=== PATIENT | male | born 1995 | race Two or more races ===

== ENCOUNTER 2024-01-11 16:22 | Emergency (ER) | payer MEDICAID, SELFPAY ==
--- NOTE | ~2024-01-11 | XR_ITS ---
EXAMINATION: XR HAND/WRIST, RIGHT CLINICAL INFORMATION: Tingling/numbness in fingers. No trauma. COMPARISON: None available. TECHNIQUE: PA, lateral, and oblique views of the right hand and wrist. FINDINGS: The bones and soft tissues are normal. No fracture. Alignment is anatomic. Joint spaces are maintained. No erosions or soft tissue calcifications. XR/XR hand wrist RT IMPRESSION: Normal radiographs of the hand and wrist. Electronically signed by: Eliseo Cleveland DO 01/11/2024 06:52 PM EDT
[2024-01-11 16:59] VITALS: PULSE 74; RESP 16; TEMP 36.9; O2SAT 98; BMI 42.8
--- NOTE | 2024-01-11 16:59 | ED_ITS ---
HPI - General Adult General Chief complaint: General Medical Stated complaint: numbness in hands, vomiting Time Seen by Provider: 01/11/24 19:24 Source: patient Mode of arrival: ambulatory Limitations: no limitations History of Present Illness ED Provider: Rebekah Burger PA-C HPI narrative: Patient is a 28 year old assigned male at with no reported medical history presenting to the emergency department today with right wrist pain, nausea, vomiting, and epigastric pain. Patient states that over the last month he has continued to have right wrist pain that radiates down into his fingers. Patient states that over the last 2 days he has had epigastric pain, nausea, and vomiting. Patient states that he thinks he ate something bad 2 days ago. Patient denies any dizziness, lightheadedness, fever, chills, blurry vision, double vision, loss of vision, chest pain, difficulty breathing, shortness of breath, back pain, night sweats, pain with urination, increased urinary frequency, increased urinary urgency, blood in his urine or stool, syncope or a near syncopal episode, recent trauma or falls, bowel incontinence, bladder incontinence, or any other complaints at this time. Relieving factors: none Exacerbating factors: none Related Data Previous Rx's ?Medication ?Instructions ?Recorded omeprazole 20 mg capsule,delayed 20 mg PO DAILY #7 caps 01/11/24 release ondansetron 4 mg disintegrating 4 mg PO Q8H 3 days #9 tabs 01/11/24 tablet prednisone 20 mg tablet 20 mg PO DAILY 7 days #7 tabs 01/11/24 Allergies Allergy/AdvReac Type Severity Reaction Status Date / Time Penicillins Allergy Unknown Verified 01/11/24 17:04 Review of Systems 2 Constitutional: Constitutional: Reports no additional constitutional complaints, Denies chills, Denies fever(s) and Denies night sweats Eyes: Eyes: Reports no additional eye complaints, Denies blurry vision, Denies change in vision, Denies diplopia, Denies eye discharge, Denies loss of vision and Denies eye pain ENT: Denies dizziness Cardiovascular: Cardiovascular: Reports no additional cardiovascular complaints, Denies chest pain, Denies lightheadedness, Denies Loss of Consciousness and Denies dyspnea Respiratory: Respiratory: Reports no additional respiratory complaints and Denies dyspnea Gastrointestinal: Gastrointestinal: Reports no additional gastrointestinal complaints, Reports abdominal pain (epigastric), Denies melena, Denies hematochezia, Denies change in bowel habits, Denies change in stool character, Reports nausea and Reports vomiting Genitourinary: Genitourinary: Reports no additional male genitourinary complaints, Denies hematuria, Denies oliguria, Denies difficulty urinating, Denies dysuria, Denies urinary frequency, Denies urinary hesitancy, Denies urinary incontinence and Denies urinary urgency Musculoskeletal: Musculoskeletal: Reports no additional musculoskeletal complaints, Denies numbness and Denies tingling Comments: right wrist pain Neurologic: Denies dizziness, Denies loss of vision, Denies numbness and Denies tingling Psychiatric: Psychiatric: Reports no additional psychiatric complaints Endocrine: Endocrine: Reports no additional endocrine complaints Hematologic/Lymphatic: Hematologic/Lymphatic: Reports no additional hematologic/lymphatic complaints Allergic/Immunologic: Allergic/Immunologic: Reports no additional allergic/immunologic complaints PMFSH Past Medical History Attestation statement: The following information was validated with the patient. Source: old records reviewed and nursing notes reviewed Social History Social History Advance Directives: No Advance Directives Information Provided: No Physical Exam ED Vital Signs: Vital Signs - 24 hr 01/11/24 16:59 01/11/24 19:20 01/11/24 20:12 Temperature 98.4 F 98.3 F Pulse Rate 74 65 65 Respiratory Rate 16 18 18 Blood Pressure 140/84 H 140/84 H Pulse Oximetry 98 96 96 Oxygen Delivery Method Room Air Room Air Room Air BMI result Body Mass Index 42.8 Const General: cooperative, no acute distress, alert and awake Nutritional Appearance: well nourished Orientation/consciousness: patient oriented x3 Limitations: no limitations [facility] Head: Yes normal to inspection and Yes atraumatic Ears: hearing grossly normal bilaterally and external ears normal General nose exam: Normal external nose present, no nasal discharge noted and no epistaxis Face and sinus: Yes normal facial exam, No abrasion and No laceration Mouth: Normal oral and palatal mucosa present, no drooling and no muffled voice Eyes General: appearance normal, both eyes and all related structures Periorbital: periorbital findings normal Eyelids: Yes eyelids normal Conjunctivae: conjunctivae normal Pupils: Equal, round and reactive pupils present EOM: EOMs intact bilaterally Neck Neck: Yes normal visual inspection, Yes full ROM and Yes no lymphadenopathy Chest Chest palpation & inspection: normal inspection of the chest Resp Effort & Inspection: normal respiratory effort and able to speak in complete sentences GI Inspection: Yes normal to inspection Palpation (GI): Soft to palpation, not firm, nontender and no guarding Neuro General: patient oriented x3 and moves all extremities Cranial nerves: Yes Equal, round and reactive pupils present Cognition (Neuro): normal cognition Extrem Other: ankle monitor present on right ankle positive tinel test of right wrist General: Yes normal to inspection, Yes full ROM and Yes capillary refill normal Psych Appearance: grossly normal Mental Status: mental status grossly normal Affect: normal affect Attitude: cooperative Thought process: Normal thought process present Thought content: Normal thought content present Insight: Good insight present (Psych) Course Course Course Narrative: This is a Rapid Medical Examination (RME) performed by Christ Bailon PA-C in triage. Full HPI, ROS, assessment and treatment plan per primary provider in the Main ED. 28 yo male hx of HTN controlled w/ lifestyle changes, here for eval N/V x2-3 days. reports assoc epigastric abd pain yest. reports decrease PO intake. no known sick contacts. also endorses tingling numbness extending from right wrist into all digits. 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 admits his fingers will cramp and get stuck . Plan: labs, UA, xr ordered Procedures Orthopedic Splinting/Casting Injury #1: Side: right Upper Extremity Injury Location: wrist Upper Extremity Immobilizer: volar splint Medical Decision Making Medical Decision Making MDM Narrative: Patient is a 28 year old assigned male at with no reported medical history presenting to the emergency department today with right wrist pain, epigastric pain, nausea, and vomiting. Patient's physical exam was as noted in the physical exam portion of this note. Patient's blood work was unremarkable. Patient's right wrist x-ray showed no acute process. I explained my physical exam findings as well as all test results to the patient. I answered all questions asked by the patient. Patient's right wrist was placed in a volar splint, without incident. Patient's PMS was intact prior to and after splint placement. I stressed the importance of the patient taking his medication as directed (either prescribed or as the over the counter packaging recommends). I stressed the importance of the patient following up with his primary care provider and an orthopedic provider. I stressed the importance of the patient returning to the emergency department immediately if his symptoms were to worsen or if he were to develop any dizziness, shortness of breath, difficulty breathing, chest pain, blurry vision, loss of vision, nausea, vomiting, abdominal pain, fever, chills, back pain, or any other complaints. Patient verbalized agreement and understanding with this treatment plan and discharge. Differential Diagnosis Differential Diagnoses: The differential diagnosis associated with the presentation includes Carpal tunnel syndrome Gastroenteritis Admission/Observation Consideration of admission/observation: Escalation of care including admission/observation considered Patient would have been admitted to the hospital had his work up had any findings where hospital admission was appropriate and his clinical presentation warranted hospital admission. Lab Data [facility] Lab Attestation statement: I reviewed the patient's lab results. My interpretation of these results are in the [facility] Rationale portion of this note. 01/11/24 17:24 01/11/24 17:24 Labs: Lab Results 01/11/24 01/11/24 01/11/24 Range/Units 17:24 17:27 18:09 WBC 6.1 (4.8-10.8) X10*3/uL RBC 4.97 (4.60-5.80) X10*6/uL Hgb 15.6 (14.0-18.0) g/dl Hct 45.3 (42.0-52.0) % MCV 91.1 (80.0-98.0) fL MCH 31.4 (27.0-33.0) pg MCHC 34.4 (31.0-36.0) g/dl RDW 12.6 (11.0-16.0) % Plt Count 161 (160-400) X10*3/uL MPV 10.1 (9.4-12.4) fL Immature Gran % (Auto) 0.2 (0.0-0.4) % Neut % (Auto) 61.3 (45-73) % Lymph % (Auto) 28.4 (20-40) % [place] % (Auto) 9.0 (2-11) % Eos % (Auto) 0.8 (0-4) % Baso % (Auto) 0.3 (0-2) % Lymph # (Auto) 1.7 (1.2-4.9) X10*3/uL [place] # (Auto) 0.6 (0.1-1.2) X10*3/uL Eos # (Auto) 0.1 (0.0-0.4) X10*3/uL Baso # (Auto) 0.0 (0.0-0.2) X10*3/uL Abs Immat Gran (auto) 0.01 (0.00-0.03) X10*3/uL Absolute Neuts (auto) 3.7 (2.0-8.3) x10*3/uL Absolute Nucleated RBC 0.000 (0.0-0.012) X10*3/uL Nucleated RBC % (auto) 0.0 (0.0-0.2) /100WBC Sodium 139 (135-145) mmol/L Potassium 4.3 (3.3-5.1) mmol/L Chloride 109 H (96-108) mmol/L Carbon Dioxide 23 (22-29) mmol/L Anion Gap 11 L (12-20) BUN 13 (9-16) mg/dL Creatinine 1.03 (0.5-1.4) mg/dL Estim Creat Clear Calc 167.4 Estimated GFR > 60 Random Glucose 101 (60-115) mg/dL Calcium 8.9 (8.4-10.2) mg/dL Magnesium 2.1 (1.6-2.6) mg/dL Total Bilirubin 0.2 (0.0-1.0) mg/dL AST 22 (5-37) U/L ALT 14 (0-40) U/L Alkaline Phosphatase 87 (39-117) U/L Total Protein 6.9 (6.5-8.0) g/dL Albumin 3.7 (3.5-5.0) g/dL Lipase 26 (8-78) U/L Urine Color Yellow Urine Appearance Clear Urine pH 5.5 (5.0-9.0) Ur Specific [place] >= 1.030 H (1.005-1.025) Urine Protein Negative (Neg-Trace) mg/dL Urine Glucose (UA) Negative (Negative) mg/dL Urine Ketones Negative (Negative) mg/dL Urine Blood Negative (Negative) Urine Nitrite Negative (Negative) Ur Leukocyte Esterase Negative (Negative) Influenza Type A (PCR) NEGATIVE (Negative) Influenza Type B (PCR) NEGATIVE (Negative) RSV RNA Qual (PCR) NEGATIVE (Negative) SARS-CoV-2 RNA (RT-PCR) NEGATIVE (Negative) Independent Interpretation I performed an independent interpretation of an: Plain X-Ray Interpretation: My interpretation is in agreement with the radiologist's impression of this imaging study. - EXAMINATION: XR HAND/WRIST, RIGHT CLINICAL INFORMATION: Tingling/numbness in fingers. No trauma. COMPARISON: None available. TECHNIQUE: PA, lateral, and oblique views of the right hand and wrist. FINDINGS: The bones and soft tissues are normal. No fracture. Alignment is anatomic. Joint spaces are maintained. No erosions or soft tissue calcifications. XR/XR hand wrist RT IMPRESSION: Normal radiographs of the hand and wrist. Electronically signed by: Eliseo Cleveland DO 01/11/2024 06:52 PM EDT Dictated By: Eliseo Cleveland Jr, DO Signed By: Electronically signed by Eliseo Cleveland Jr, DO 01/11/24 [id number] Radiology Impression Discussion of test interpretation with radiology: I have reviewed the radiologist's reading. Discharge Plan Discharge Clinical Impression: Acute carpal tunnel syndrome, Gastroenteritis Patient Disposition: Home, Self-Care Instructions: Gastroenteritis (DC), Carpal Tunnel Surgery (DC) Additional Instructions: Follow up with your primary care provider and an orthopedic provider. Return to the emergency department immediately if your symptoms worsen or if you develop any dizziness, shortness of breath, difficulty breathing, chest pain, blurry vision, loss of vision, nausea, vomiting, abdominal pain, fever, chills, back pain, or any other complaints. Prescriptions: New prednisone 20 mg tablet 20 mg PO DAILY 7 Days Qty: 7 0RF ondansetron 4 mg tablet,disintegrating 4 mg PO Q8H 3 Days Qty: 9 0RF omeprazole 20 mg capsule,delayed release(DR/EC) 20 mg PO DAILY Qty: 7 0RF Referrals: [facility] [place] [facility] [Provider Group] (Call to establish and follow up with an orthopedic provider. ) [facility] [Primary Care Provider] - Stand Alone Forms: Work/School Release Interventions: ED Discharge Assessment Last Done: 01/11/24 20:12 Discharge Date/Time: 01/11/24 20:13 Print Language: Togolese
[2024-01-11 17:28] LABS: MANUAL DIFF FLAG NO
[2024-01-11 17:32] LABS: Basophils Percent Auto 0.3 % (0-2); Eosinophils Absolute Auto 0.1 X10*3/uL (0.0-0.4); Eosinophils Percent Auto 0.8 % (0-4); Hematocrit 45.3 % (42.0-52.0); Hemoglobin 15.6 g/dl (14.0-18.0); Imm Gran Abs Auto 0.01 X10*3/uL (0.00-0.03); Imm Gran Pct Auto 0.2 % (0.0-0.4); Lymphocytes Absolute Auto 1.7 X10*3/uL (1.2-4.9); Lymphocytes Percent Auto 28.4 % (20-40); Mean Corpuscular HGB Conc 34.4 g/dl (31.0-36.0); Mean Corpuscular Hemoglobin 31.4 pg (27.0-33.0); Mean Corpuscular Volume 91.1 fL (80.0-98.0); Mean Platelet Volume 10.1 fL (9.4-12.4); Monocytes Absolute Auto 0.6 X10*3/uL (0.1-1.2); Neutrophils Absolute Auto 3.7 x10*3/uL (2.0-8.3); Neutrophils Percent Auto 61.3 % (45-73); Platelet Count 161 X10*3/uL (160-400); Red Blood Count 4.97 X10*6/uL (4.60-5.80); Red Cell Distribution Width 12.6 % (11.0-16.0); White Blood Count 6.1 X10*3/uL (4.8-10.8)
[2024-01-11 17:35] LABS: Appearance Urine Clear; Color Urine Yellow; Glucose Urine UA Negative (Negative); Leukocyte Esterase Urine Negative (Negative); Nitrite Urine Negative (Negative); PH 5.5 (5.0-9.0); Specific Gravity - Urine >= 1.030 (1.005-1.025); Urine Blood Negative (Negative); Urine Ketones Negative (Negative); Urine Protein Negative (Neg-Trace)
[2024-01-11 17:50] LABS: Alanine Aminotransferase 14 U/L (0-40); Albumin Level 3.7 g/dL (3.5-5.0); Alkaline Phosphatase 87 U/L (39-117); Anion Gap 11 (12-20); Aspartate Amino Transferase 22 U/L (5-37); Bilirubin Total 0.2 mg/dL (0.0-1.0); Blood Urea Nitrogen 13 mg/dL (9-16); Calcium 8.9 mg/dL (8.4-10.2); Carbon Dioxide 23 mmol/L (22-29); Chloride 109 mmol/L (96-108); Creatinine Clr Calc Pharmacy 167.4; Estimated Glomerular Filt Rate > 60; Glucose Random 101 mg/dL (60-115); Lipase 26 U/L (8-78); Magnesium 2.1 mg/dL (1.6-2.6); Potassium 4.3 mmol/L (3.3-5.1); Sodium 139 mmol/L (135-145); Total Protein 6.9 g/dL (6.5-8.0)
[2024-01-11 18:59] LABS: Influenza A PCR NEGATIVE (Negative); Influenza B PCR NEGATIVE (Negative); Resp Syncy Virus RNA Qual PCR NEGATIVE (Negative); SARS COV2 PCR INHOUSE NEGATIVE (Negative)
[2024-01-11 19:20] VITALS: BP 140/84; PULSE 65; RESP 18; O2SAT 96
[2024-01-11 20:12] VITALS: BP 140/84; PULSE 65; RESP 18; TEMP 36.8; O2SAT 96
== END 2024-01-11 20:13 | disposition home or self-care (01) ==
PROVIDERS: Physician Assistant Medical; Emergency Provider Emergency Medicine Emergency Medical Services
DX: G56.01 Carpal tunnel syndrome, right upper limb (principal); M25.531 Pain in right wrist; K52.9 Noninfective gastroenteritis and colitis, unspecified; Z03.818 Encounter for observation for suspected exposure to other biological agents ruled out
CPT/HCPCS: 0241U; 36415; 73110; 73130; 80053; 81003; 83690; 83735; 85025; 99283; 99284

== ENCOUNTER 2024-01-31 08:34 | Outpatient (AMB) | payer MEDICAID, SELFPAY ==
--- NOTE | 2024-01-31 08:36 | MHC.OFFVIS ---
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 Pt states this pain has been going on for quite some time but within the past two months has gotten much worse. 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 Pt states his hand feels weak. 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 The patient reports that this numbness and tingling primarily occurs in the thumb, index finger, middle finger of the right hand. 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 Today, the patient reports that he is numb and tingling in the middle and ring fingers of the right hand, but it is still primarily in the median nerve distribution of the right hand. Patient states that he has been wearing an wrist brace provided to him by his mother to work, as well as at night, and finds that this gives him good relief. The patient inquires about potential carpal tunnel injections. No other acute complaints or concerns at this time. Review of Systems Const All systems reviewed & are unremarkable except as noted in HPI and below Physical Exam Extrem Other: Neuro: Decreased sensation in the middle and radial ring fingers of the right hand. Normal sensation to all other digits in the right hand today. Normal sensation in the tips of all digits of the left hand today. No thenar or intrinsic wasting. Weakened APB muscle belly firing Good finger cross Vascular: Capillary refill brisk. ROM: Patient can make a fist and extend all their digits. Skin: No lacerations or abrasions noted. General: No ecchymosis. No erythema or evidence of infection. Negative Tinel's on the right Assessment & Plan Assessment & Plan (1) Numbness and tingling of right hand: Code(s): R20.0 - Anesthesia of skin; R20.2 - Paresthesia of skin Category: Medical Plan 1. Numbness and tingling of right hand Ongoing for ?many years , worsening over the last 2-3 months Symptoms intermittent, daily, worse at night Patient is educated about this condition At this time, patient is sent for EMG and nerve conduction study to assess the health of the nerves of the right upper extremity Patient will follow-up in our office with me after EMG and nerve conduction study to discuss further treatment options if indicated Patient is amenable to this plan In the meantime, the patient is provided with a Velcro wrist splint to be worn at night for help with night pain and other symptoms, but is advised he should not be wearing this brace during the day, and he should continue working on range of motion of the right hand and wrist while awake Patient will follow-up after nerve conduction study for results review and discussion of further treatment options if indicated, sooner with any acute concerns Orders: Orders NE electromyogram (EMG) Today R20.0 - Anesthesia of skin, R20.2 - Paresthesia of skin NE nerve conduction velocity Today R20.0 - Anesthesia of skin, R20.2 - Paresthesia of skin Coding Level of Care Code New Pt Level 3 (10010) Diagnoses Numbness and tingling of right hand R20.0; R20.2
== END 2024-01-31 09:23 | disposition home or self-care (01) ==
DX: R20.0 Anesthesia of skin (principal); R20.2 Paresthesia of skin
CPT/HCPCS: 99203

== ENCOUNTER → 2024-01-31 08:34 | Outpatient (BNVA) | payer MEDICAID, SELFPAY | DX: R20.0 Anesthesia of skin (principal); R20.2 Paresthesia of skin | CPT/HCPCS: 99212 ==

== ENCOUNTER 2024-02-28 12:24 | Outpatient (REF) | payer MEDICAID, SELFPAY ==
--- NOTE | 2024-02-28 12:27 | EMG_ITS ---
Chief complaint: Bilateral hand numbness. Associated with repetitive work. Started with right side. Also affecting left side now since he has been using left more to compensate. Reason for referral: Evaluate for Carpal Tunnel Syndrome Referred by: Obie MURILLO Procedure done: Bilateral upper extremities NCS/EMG Precautions and/or limitations: None The limb temperature was monitored continuously and remained between 32-36 degrees C during the performance of the NCS. Nerve Conduction Studies Anti Sensory Summary Table ?Stim Site NR Onset (ms) Norm Onset (ms) Peak (ms) Norm Peak (ms) O-P Amp (?V) Norm O-P Amp Site1 Site2 Delta-0 (ms) Dist (cm) Aravind (m/s) Norm Aravind (m/s) Left Median Anti Sensory (2nd Digit) Wrist ? 3.3 4.2 <3.6 25.3 >10 Wrist 2nd Digit 3.3 14.0 42 Right Median Anti Sensory (2nd Digit) Wrist ? 3.6 5.4 <3.6 15.2 >10 Wrist 2nd Digit 3.6 14.0 39 Right Radial Anti Sensory (Thumb) Forearm ? 1.3 1.9 <3.1 24.4 Forearm Thumb 1.3 0.0 Left Ulnar Anti Sensory (5th Digit) Wrist ? 2.5 3.2 <3.7 36.0 >15.0 Wrist 5th Digit 2.5 14.0 56 Right Ulnar Anti Sensory (5th Digit) Wrist ? 2.3 3.0 <3.7 32.6 >15.0 Wrist 5th Digit 2.3 14.0 61 Motor Summary Table ?Stim Site NR Onset (ms) Norm Onset (ms) O-P Amp (mV) Norm O-P Amp iAmp (mV) Amp (1st) (%) Site1 Site2 Delta-0 (ms) Dist (cm) Aravind (m/s) Norm Aravind (m/s) Left Median Motor (Abd Poll Brev) Wrist ? 5.5 <3.9 7.8 >4.5 9.5 100.0 Elbow Wrist 5.0 26.5 53 >45 Elbow ? 10.5 7.6 9.2 97.4 Right Median Motor (Abd Poll Brev) Wrist ? 5.7 <3.9 11.1 >4.5 13.1 100.0 Elbow Wrist 5.2 27.0 52 >45 Elbow ? 10.9 10.6 12.5 95.5 Left Ulnar Motor (Abd Dig Minimi) Wrist ? 3.0 <3.0 6.1 >5 7.5 100.0 B Elbow Wrist 4.4 26.0 59 >45 B Elbow ? 7.4 4.9 6.2 80.3 A Elbow B Elbow 0.9 10.0 111 >45 A Elbow ? 8.3 5.7 7.2 93.4 Right Ulnar Motor (Abd Dig Minimi) Wrist ? 3.0 <3.0 5.3 >5 6.9 100.0 B Elbow Wrist 4.2 25.0 60 >45 B Elbow ? 7.2 5.0 6.5 94.3 A Elbow B Elbow 1.0 10.0 100 >45 A Elbow ? 8.2 5.0 6.5 94.3 EMG ?Side Muscle Nerve Root Ins Act Fibs Psw Amp Dur Poly Recrt Int Pat Comment Right 1stDorInt Ulnar C8-T1 Nml Nml Nml Nml Nml 0 Nml Complete Right FlexCarRad Median C6-7 Nml Nml Nml Nml Nml 0 Nml Complete Right Biceps Musculocut C5-6 Nml Nml Nml Nml Nml 0 Nml Complete Right Triceps Radial C6-7-8 Nml Nml Nml Nml Nml 0 Nml Complete Right Deltoid Axillary C5-6 Nml Nml Nml Nml Nml 0 Nml Complete Left 1stDorInt Ulnar C8-T1 Nml Nml Nml Nml Nml 0 Nml Complete Left FlexCarRad Median C6-7 Nml Nml Nml Nml Nml 0 Nml Complete Left Biceps Musculocut C5-6 Nml Nml Nml Nml Nml 0 Nml Complete Left Triceps Radial C6-7-8 Nml Nml Nml Nml Nml 0 Nml Complete Left Deltoid Axillary C5-6 Nml Nml Nml Nml Nml 0 Nml Complete FINDINGS: Bilateral median motor nerves showed prolonged distal latency, normal amplitude and normal conduction velocity. Bilateral median sensory nerves showed prolonged peak latency. All other nerves tested were within normal. Concentric needle EMG was performed in selected muscles of the bilateral upper extremities. Study did not reveal signs of electric abnormalities as shown in the table above. IMPRESSION: 1. This is an abnormal study. 2. There is electrodiagnostic evidence for bilateral moderate-severe median neuropathy at the wrist, consistent with carpal tunnel syndrome. 3. There is no electrodiagnostic evidence for ulnar neuropathy, brachial plexopathy, or cervical radiculopathy. Thank you for your kind referral. Aziza Youngblood MD, JENNIFER Board Certified, [place] Board [employer] and [employer] (ABPMR) Board Certified, [place] Board of Electrodiagnostic [employer] (ABEM) CODIN [phone] x 2 MTDD
== END 2024-02-28 12:25 | disposition home or self-care (01) ==
LOC: HO.NEURO 12:24
DX: R20.0 Anesthesia of skin (principal); R20.2 Paresthesia of skin
CPT/HCPCS: 95886; 95911

== ENCOUNTER → 2024-02-28 12:27 | Outpatient (BNV) | payer MEDICAID, SELFPAY | PROVIDERS: Visit Provider Physical Medicine & Rehabilitation | DX: G56.03 Carpal tunnel syndrome, bilateral upper limbs (principal) | CPT/HCPCS: 95886; 95911 ==

== ENCOUNTER 2024-03-14 09:50 | Outpatient (AMB) | payer MEDICAID, SELFPAY ==
[2024-03-14 10:31] VITALS: BMI 42.7
--- NOTE | 2024-03-14 10:31 | A.OFFVIS_ITS ---
Vital Signs 03/14/24 10:31 Height 6 ft 3 in Weight 342 lb BMI 42.7 Intake Visit Reasons: OV- bilateral hand EMG review Intake Note: Carlos is a 28 year old right hand dominant male who presents today for an EMG review of his bilateral hands. EMG was performed on 02/28/24 Allergies Penicillins Allergy (Verified 03/14/24 10:36) Unknown HPI HPI OV- bilateral hand EMG review: Details: Patient is a 28-year-old male who presents for bilateral hand EMG review. Patient states that his symptoms have remained consistent since previous evaluation, and are still intermittent, but daily, and worse at night. Physical Exam Vital Signs: BMI result Body Mass Index 42.7 Extrem Other: Neuro: Decreased sensation in the middle and radial ring fingers of the right hand. Normal sensation to all other digits in the right hand today. Normal sensation in the tips of all digits of the left hand today. No thenar or intrinsic wasting. Weakened APB muscle belly firing Good finger cross Vascular: Capillary refill brisk. ROM: Patient can make a fist and extend all their digits. Skin: No lacerations or abrasions noted. General: No ecchymosis. No erythema or evidence of infection. Negative Tinel's on the right Results Reviewed Results Reviewed: IMPRESSION: 1. This is an abnormal study. 2. There is electrodiagnostic evidence for bilateral moderate-severe median neuropathy at the wrist, consistent with carpal tunnel syndrome. 3. There is no electrodiagnostic evidence for ulnar neuropathy, brachial plexopathy, or cervical radiculopathy. Thank you for your kind referral. Aziza Youngblood MD, JENNIFER 02/28/2020 Assessment & Plan Assessment & Plan (1) Bilateral carpal tunnel syndrome: Code(s): G56.03 - Carpal tunnel syndrome, bilateral upper limbs Category: Medical Plan 1. Carpal tunnel syndrome, right Symptoms intermittent, daily, worse at night I educated the patient about the condition. I discussed both operative and nonoperative treatment options. The patient would like to proceed with surgery. The risks and benefits of operative treatment were discussed with the patient and the patient wishes to proceed with surgery. These risks include, but are not limited to, risk of damage to blood vessels, nerves, tendons, infection, recurrence, incomplete relief of preoperative symptoms, persistent pain, possible need for further surgery, and the risks associated with regional blocks and/or anesthesia. Plan is to take the patient to the operating room at some point in the next few weeks for the following procedures: 1. Right carpal tunnel release under local anesthesia All of the preoperative paperwork including the consent was discussed today. All of the patient's questions were answered in the clinic today. The patient understands that they will be in contact with our medical or surgical instrument maker to discuss scheduling their procedure. Patient denies diabetes, blood thinners, asthma, heart issues, lung issues, kidney issues, or current smoking. 2. Carpal tunnel syndrome, left Symptoms intermittent, daily, worse at night At this time, patient would like to proceed with operative intervention on the right prior to any surgical intervention on the left Patient was advised that if he is recovering well at his 1st postoperative visit, we can get him signed up for surgery at that time Patient is amenable to this plan Coding Level of Care Code Est Pt Level 4 (83923) Diagnoses Bilateral carpal tunnel syndrome G56.03
== END 2024-03-14 10:49 | disposition home or self-care (01) ==
LOC: HO.HOS 09:50
DX: G56.03 Carpal tunnel syndrome, bilateral upper limbs (principal)
CPT/HCPCS: 99214

== ENCOUNTER → 2024-03-14 09:50 | Outpatient (BNVA) | payer MEDICAID, SELFPAY | DX: G56.03 Carpal tunnel syndrome, bilateral upper limbs (principal) | CPT/HCPCS: 99212 ==

== ENCOUNTER 2024-05-09 20:18 | Emergency (ER) | payer MEDICAID, SELFPAY ==
--- NOTE | ~2024-05-09 | CT_ITS ---
CLINICAL HISTORY: headache, lightheadedness CT head without contrast Comparison: None Findings: No intra-axial mass, midline shift, hydrocephalus, or acute hemorrhage. No significant atrophy-like change or white matter disease. There is no sinus or mastoid fluid. The orbits are within normal limits. There is no acute fracture. IMPRESSION: 1. No acute intracranial findings This document has been electronically signed by: Favian Andrews MD on 05/09/2024 21:53:04
[2024-05-09 20:22] VITALS: BP 137/87; PULSE 98; RESP 18; TEMP 37.6; O2SAT 98; BMI 39.4
--- NOTE | 2024-05-09 20:22 | ED_ITS ---
HPI - General Adult General Chief complaint: Upper Respiratory Symptoms Stated complaint: Migraine/coughing alot/no appetite Time Seen by Provider: 05/10/24 00:09 History of Present Illness ED Provider: Laura NIELSEN narrative: Patient is a 28-year-old male who has felt unwell for about 3 days. He says that his symptoms started with a mild sense of being unwell together with a cough. Yesterday he felt considerably worse and also developed a significant headache and body aches generally. Related Data Previous Rx's ?Medication ?Instructions ?Recorded ibuprofen 400 mg tablet 400 mg PO Q6H PRN pain #14 tabs 05/10/24 oseltamivir 75 mg capsule 75 mg PO BID 5 days #10 caps 05/10/24 Allergies Allergy/AdvReac Type Severity Reaction Status Date / Time Penicillins Allergy Unknown Verified 05/09/24 20:23 Review of Systems Review of Systems: Yes all other systems are reviewed and are negative [facility] Social History Social History Advance Directives: No Advance Directives Information Provided: No Do you have a plan to hurt others: No Plan Physical Exam ED Vital Signs: Vital Signs - 24 hr 05/09/24 20:22 05/09/24 23:12 Temperature 99.7 F 99.9 F Pulse Rate 98 82 Respiratory Rate 18 22 H Blood Pressure 137/87 121/75 Pulse Oximetry 98 97 Oxygen Delivery Method Room Air Room Air BMI result Body Mass Index 39.4 Const Other: The patient is a 28-year-old male who looks as if he does not feel very well but he does not appear in acute distress or seem toxic. HENAR Other: Face is symmetrical. Mucous membranes are moist. The posterior pharynx is normal. There is no trismus. No intraoral swelling. Tympanic membranes are normal bilaterally. Eyes General: appearance normal, both eyes and all related structures Neck Neck: Yes full ROM and Yes no lymphadenopathy Resp Effort & Inspection: normal respiratory effort Auscultation: clear to auscultation bilaterally Cardio Rate: regular rate Rhythm: regular rhythm Heart sounds: S1 normal heart sound present and S2 normal heart sound present GI Other: Abdomen is soft and nontender Skin Other: Skin is pale and dry Neuro Other: The patient is awake and alert with a normal mental status. Cranial nerves are grossly intact. He moves his extremities normally. Extrem Other: No calf swelling or tenderness or asymmetry. Course Course Course Narrative: RME performed by Rebekah Burger PA-C. Patient is a 28 year old assigned male at presenting to the emergency department with a headache, cough, and feeling generally unwell. Detailed physical exam and review of systems are deferred to the solidworks mechanical designer. Imaging and swabs ordered. Patient placed back in the waiting room pending room availability and results. Medical Decision Making Medical Decision Making MDM Narrative: The patient is a 28-year-old male who says that he has felt unwell for 3 days. He says his symptoms became much worse yesterday. He has felt feverish, he has had a sense of cough and congestion, he has had a headache and body aches. His symptoms seem consistent with an acute respiratory infection and he has tested positive for influenza A. A CT scan of the brain has been ordered at triage. This is negative. The patient will be started on oseltamivir. He will also be prescribed ibuprofen. He is encouraged to get a regular doctor. He should return if worse. Lab Data Labs: Lab Results 05/09/24 Range/Units 20:36 Influenza Type A (PCR) POSITIVE A (Negative) Influenza Type B (PCR) NEGATIVE (Negative) RSV RNA Qual (PCR) NEGATIVE (Negative) SARS-CoV-2 RNA (RT-PCR) NEGATIVE (Negative) S. pyogenes GrpA KARY Negative (Negative) Discharge Plan Discharge Clinical Impression: Influenza A Patient Disposition: Home, Self-Care Instructions: Influenza (ED) Additional Instructions: You have tested positive for the flu today. You has been started on an anti-influenza medication, oseltamivir, also known as Tamiflu. A prescription for this medication has been sent to your pharmacy. Please take this medication 2 times a day for 5 days. A prescription for ibuprofen has also been sent to your pharmacy which you may use for discomfort. Use this as needed every 6 hours. You may also use [id number] acetaminophen (Tylenol) as needed. Please plan on resting and taking it easy over the weekend. You will likely feel unwell for another couple of days. Drink lot of fluids. Please work on getting a regular primary care doctor. Return to the emergency room if significantly worse. Prescriptions: New oseltamivir 75 mg capsule 75 mg PO BID 5 Days Qty: 10 0RF ibuprofen 400 mg tablet 400 mg PO Q6H PRN (Reason: pain) Qty: 14 0RF Print Language: German
[2024-05-09 21:19] LABS: Influenza A PCR POSITIVE (Negative); Influenza B PCR NEGATIVE (Negative); Resp Syncy Virus RNA Qual PCR NEGATIVE (Negative); SARS COV2 PCR INHOUSE NEGATIVE (Negative)
[2024-05-09 21:33] LABS: IDNOW Serial# 58CA691E
[2024-05-09 21:34] LABS: Strep A Nucleic Acid Negative (Negative)
[2024-05-09 23:12] VITALS: BP 121/75; PULSE 82; RESP 22; TEMP 37.7; O2SAT 97
[2024-05-10 00:41] VITALS: BP 132/82; PULSE 76; RESP 20; TEMP 37.2; O2SAT 97
[2024-05-10] MEDS: Acetaminophen 325 MG TABLET 975 MG PO (00:44)
[2024-05-10] MEDS: Ketorolac Tromethamine 30 MG/ML VIAL IM (00:44)
[2024-05-10] MEDS: Oseltamivir Phosphate 75 MG CAPSULE PO (00:44)
== END 2024-05-10 01:09 | disposition home or self-care (01) ==
PROVIDERS: Physician Assistant Medical; Emergency Provider Emergency Medicine
DX: J10.1 Influenza due to other identified influenza virus with other respiratory manifestations (principal); G43.909 Migraine, unspecified, not intractable, without status migrainosus; R05.9 Cough, unspecified; Z03.818 Encounter for observation for suspected exposure to other biological agents ruled out
CPT/HCPCS: 0241U; 70450; 87651; 96372; 99283; 99284; J1885

== ENCOUNTER → 2024-05-09 20:23 | Outpatient (BNV) | payer SELFPAY | PROVIDERS: Visit Provider Specialist | DX: R51.9 Headache, unspecified (principal); R42 Dizziness and giddiness | CPT/HCPCS: 70450 ==

== ENCOUNTER 2024-11-10 20:51 | Emergency (ER) | payer MEDICAID, SELFPAY ==
[2024-11-10 20:54] VITALS: BP 137/81; PULSE 79; RESP 16; TEMP 36.6; O2SAT 98; BMI 37.7
[2024-11-10 22:17] VITALS: BP 125/72; PULSE 70; RESP 20; TEMP 36.9; O2SAT 100
--- NOTE | 2024-11-10 23:10 | PC.NURSE ---
pt waiting to be seen by provider, pt complaining of left eye pressure, left eye has a visual blood,
--- NOTE | 2024-11-11 00:10 | ED.EYEPROB ---
HPI - Eye Problem General Chief complaint: Eye Problems Stated complaint: headache/left eye pain Time Seen by Provider: 11/10/24 23:58 Source: patient and family Mode of arrival: ambulatory Limitations: no limitations History of Present Illness ED Provider: DR. Greene HPI Narrative: 29-year-old male came in for evaluation after a co-worker noticed a blood shot in his left eye was just noted today. Patient normally wear correction glasses, declined eye injury, no anticoagulation, no forceful coughing or sneezing, no double vision, no blurry vision, on and off headache x1 week, nausea, no vomiting, no fever, no eye discharge, otherwise no conjunctival congestion. Related Data Previous Rx's ?Medication ?Instructions ?Recorded ibuprofen 400 mg tablet 400 mg PO Q6H PRN pain #14 tabs 05/10/24 oseltamivir 75 mg capsule 75 mg PO BID 5 days #10 caps 05/10/24 Allergies Allergy/AdvReac Type Severity Reaction Status Date / Time Penicillins Allergy Unknown Verified 11/10/24 21:00 Review of Systems Review of Systems: All other systems are reviewed and are negative Constitutional: Reports as per HPI and Reports no additional constitutional complaints Eyes: Reports as per HPI and Reports no additional eye complaints Reports system reviewed and no additional complaints, except as documented Cardiovascular: Reports as per HPI and Reports no additional cardiovascular complaints Respiratory: Reports as per HPI and Reports no additional respiratory complaints Gastrointestinal: Reports as per HPI and Reports no additional gastrointestinal complaints Genitourinary: Reports no additional female genitourinary complaints Musculoskeletal: Reports no additional musculoskeletal complaints Skin/Breast: Reports system reviewed and no additional complaints, except as docu Psychiatric: Reports no additional psychiatric complaints Endocrine: Reports no additional endocrine complaints Hematologic/Lymphatic: Reports no additional hematologic/lymphatic complaints Allergic/Immunologic: Reports no additional allergic/immunologic complaints Reports system reviewed and no additional complaints, except as documented and Reports Abnormal speech present [facility] Social History Social History Smoked in Last 30 Days: No Use of substances other than those prescribed or required for medical reasons: No Advance Directives: No Advance Directives Information Provided: Yes Do you have a plan to hurt others: No Plan Physical Exam Vital Signs: Vital Signs: Last Vital Signs Temp 98.4 F 11/10/24 22:17 Pulse 70 11/10/24 22:17 Resp 20 06/30/25 22:17 BP 125/72 11/10/24 22:17 Pulse Ox 100 11/10/24 22:17 O2 Del Method Room Air 11/10/24 22:17 BMI result Body Mass Index 37.7 Vital signs have been reviewed and appear to be correct. Blood pressure elevated. Heart rate normal. Respiratory rate normal. Temperature normal. Oxygen saturation normal. Appearance: Alert. Oriented X3. No acute distress. Head: Normal external exam. Normocephalic. Atraumatic. No Lambert signs noted. No raccoon eyes noted Eyes: VA right 20/40 corrected, 20/25 corrected. General: appearance normal, both eyes and all related structures Visual Freed: normal visual freed by confrontation Alignment and Position: alignment normal and position normal Periorbital: periorbital findings normal Eyelids: Yes eyelids normal Conjunctivae: conjunctivae normal Sclerae: A small dot of subconjunctival hemorrhage at 03:00 of the left eye. Corneas: corneas normal Pupils: Equal, round and reactive pupils present and Pupil accommodation reflex normal EOM: EOM abnormal (Limited abduction of right eye) and No Nystagmus present Direct Ophthalmoscopy: normal light reflex, no photophobia, no papilledema and fundi normal bilaterally. ENT: TM's Normal. Pharynx normal. Uvula midline. Moist mucous membranes. No trismus noted. No drooling noted. No muffled voice noted. Neck: Normal inspection. Neck supple. FROM. No adenopathy. Thyroid Normal. No meningeal signs. No neck mass noted. CVS: Normal heart rate and rhythm. Heart sound normal. No murmurs noted. Pulses normal throughout. Respiratory: No respiratory distress. Painless inspiration. Breath sounds normal. No wheezes/rales/rhonchi noted. Chest nontender. No accessory muscle usage noted or decreased air movement noted. Abdomen: Soft and nontender. Bowel sounds normal in all 4 quadrants. No distention noted. No organomegaly noted. No visible injury noted. Back: No CVA tenderness. Full range of motion noted. Skin: Skin warm and dry. Normal skin color. Normal skin turgor. No rashes/lesions/lacerations noted. Extremities: No lower extremity edema. Extremities exhibit normal range of motion. Extremities nontender. Neuro: Oriented X 3. Cranial nerve exam: II-XII are grossly intact No motor deficit. No sensory deficit. Reflexes normal. Course Reevaluation(s) Reevaluation #1: Subconjunctival hemorrhage. Reassure the patient. Time: 00:17 Medical Decision Making Differential Diagnosis Differential Diagnoses: The differential diagnosis associated with the presentation includes (Subconjunctival hemorrhage, conjunctivitis.) Admission/Observation Consideration of admission/observation: Escalation of care including admission/observation considered Discharge Plan Discharge Clinical Impression: Subconjunctival hemorrhage Patient Disposition: Home, Self-Care Additional Instructions: Your eye exam is at baseline. You have a condition called subconjunctival hemorrhage which is a benign bleed in the white part of the eye (sclera) and should not affect her vision. Try to avoid taking aspirin or ibuprofen which may increase the bleeding. Your body should observe that is small bleed in 5-7 days. If persist or get worse contact your eye doctor. Prescriptions: No Action oseltamivir 75 mg capsule 75 mg PO BID 5 Days Qty: 10 0RF ibuprofen 400 mg tablet 400 mg PO Q6H PRN (Reason: pain) Qty: 14 0RF Print Language: Greek
[2024-11-11 00:42] VITALS: BP 125/72; PULSE 70; RESP 20; TEMP 36.9; O2SAT 100
--- NOTE | 2024-11-11 00:43 | PC.NURSE ---
vision acuity test completed, reviewed discharge instructions, pt verbalized understanding. no sign if distress
== END 2024-11-11 00:45 | disposition home or self-care (01) ==
PROVIDERS: Emergency Provider Emergency Medicine
DX: H11.32 Conjunctival hemorrhage, left eye (principal); R51.9 Headache, unspecified

== ENCOUNTER 2024-12-22 11:27 | Outpatient (REF) | payer MEDICAID, SELFPAY ==
--- OUTSIDE RECORDS SUMMARY | 2024-12-22 12:06 | XMS_ITS | Clinical Summary ---
Author Organization [facility] Address [address] [place] [address] Care Team Providers Care Top Flavor Attendant Name Role Phone Unavailable Primary Care Provider Unavailabl e Source Comments PLEASE NOTE, if this patient is a minor, it may be UNLAWFUL to discuss sensitive information that is contained in these records (such as FAMILY PLANNING, MENTAL HEALTH or SUBSTANCE ABUSE) with the minor patient's parent or other person without the patient's specific authorization.[facility] Allergies Active Allergy Reactions Criticality Noted Date Comments Penicillins Hives 10/06/2023 Medications No known medications Active Problems No known active problems Family History Medical History Relation Name Comments Anxiety disorder Mother Asthma Mother Breast cancer Mother Hypertension Mother Malig Hypertension Mother Relation Name Status Comments Mother Social History Tobacco Use Types Packs/Day Years Used Date Smoking Tobacco: Never Smokeless Tobacco: Never Tobacco Cessation:Counseling Given: Not Answered Alcohol Use Standard Drinks/Week Comments Not Currently 0 (1 standard drink = 0.6 oz pur e alcohol) Social Connections Answer Date Recorded Connectedness 0 01/15/2024 Financial Resource Strain Answer Date R ecorded Financial Resource Strain 1 2023 Stress Answer Date Recorded Stress 0 08/23/2023 Physical Activity Answer Date Recorded Physical Activity 0 08/23/2023 Food Insecurity Answer Date Recorded Food 1 10/06/2023 Transportation Needs Answer Date Record ed Transportation 1 10/06/2023 Housing Stability Answer Date Recorded Housing 1 10/06/2023 Safety and Environment Answer Date [place] rded Safety 0 08/23/2023 Utilities Answer Date Recorded Utilities 2 10/06/2023 Employment Answer Date Recorded Stress 2 10/06/2023 Sex and Gender Information Value Date Recorded Sex Assigned at Male 10/06/2023 7:38 AM PDT Legal Sex Male 7:54 AM PDT Gender Identity Male 10/06/2023 7:38 AM PDT Sexual Orientation Straight 10/06/2023 7: 38 AM PDT Last Filed Vital Signs Vital Sign Reading Time Taken Comments Blood Pressure 125/84 10/06/2023 9:48 AM EDT Pulse 80 10/06/2023 9:48 AM EDT Temperature 36.2 C (97.1 F) 10/06/2023 9:48 AM EDT Respiratory Rate - - Oxygen Saturation 97% 10/06/2023 9:48 AM EDT Inhaled Oxygen Concentration - - Weight 142.9 kg (315 lb) 10/06/2023 9:48 AM EDT Height 185 cm (6' 0.84 ) 10/06/2023 9:48 AM EDT Body Mass Index 41.75 10/06/2023 9:48 AM EDT Plan of Treatment Health Maintenance Due Date Last Done Comments Anxiety Screening 1993 Tobacco Screening 1993 Imm-DTaP/Tdap/Td (1 - Tdap) 2012 Imm-Hepatitis B (1 of 3 - 19+ 3-dose series) 3 [id number] () 01/13/2024 Alcohol and Drug Screen 05/14/2024 10/06/2023 Depression Annual Screen 05/14/2024 10/06/2023 Annual Wellness (Adult): Indicated (All Coverage) 09/1210/06/2023 Hypertension Screening (#1) 10/05/2024 Imm-Influenza (#1) 2025 HIV Screening Completed 10/06/2023 Hepatitis C Screening Completed 10/06/2023 Procedures Procedure Name Priority Date/Time Associated Diagnosis Comments HIV 1/2 AG & AB W/RFLX (4TH GEN) Routine 10/06/2023 11:06 AM EDT Encounter for routine adult health examination with abnormal findings HEPATITIS C AB W/RFLX HCV RNA, QT, RT PCR Routine 10/06/2023 11:06 AM EDT Encounter for routine adult health examination with abnormal findings from Last 3 Months or Most Recently Relevant to Health Maintenance Results * HEPATITIS C AB W/REFL TO HCV RNA, QN, PCR (10/06/2023 11:06 AM EDT) HEPATITIS C ANTIBODY NON-REACTI VE NON-REACT [facility] ([facility]) Comment: HCV antibody was non-reactive. There is no laboratory evidence of HCV infection. In most cases, no further action is required. However, if recent HCV exposure is suspected, a test for HCV RNA (test code 52859) is suggested. For additional information please refer to http://education.[facility]/faq/UGO95v4 (This link is being provided for informational/ educational purposes only.) Blood Blood / Unknown 10/06/2023 1 1:06 AM EDT 10/06/2023 11:06 AM EDT Narrative [facility]) - 10/07/2023 8:36 AM EDT [facility] Testing performed at: ON LICENSE OF [facility], [facility], [address] [place] [address], [phone], Assistant Professor Of Archaeology: Carmelita Be [facility] Collection Date/Time: [facility] Results Received Date/Time: [facility] Reported Date/Time: [id number] [facility] Collection Date/Time: Cat Nogueira NP LAB - BLOOD DRAW Final Resul t [facility]) [address] [place] [address], * HIV 1/2 AG & AB W/RFLX (4TH GEN) (10/06/2023 11:06 AM EDT) HIV AG/AB, 4TH GEN NON-REACT MAKSIM NON-REACT MAKSIM [facility] ([facility]) Comment: HIV-1 antigen and HIV-1/HIV-2 antibodies were not detected. There is no laboratory evidence of HIV infection. PLEASE NOTE: This information has been disclosed to you from records whose confidentiality may be protected by state law. If your state requires such protection, then the state law prohibits you from making any further disclosure of the information without the specific written consent of the person to whom it pertains, or as otherwise permitted by law. A general authorization for the release of medical or other information is NOT sufficient for this purpose. For additional information please refer to http://education.[employer]/faq/ZPH824 (This link is being provided for informational/ educational purposes only.) The performance of this assay has not been clinically validated in patients less than 2 years old. Blood Blood / Unknown 10/06/2023 1 1:06 AM EDT 10/06/2023 11:06 AM EDT Narrative [facility]) - 10/07/2023 8:36 AM EDT [facility] Testing performed at: [facility], [facility], [address] [place] [address], [phone], Assistant Professor Of Archaeology: Carmelita Be [facility] Collection Date/Time: [facility] Results Received Date/Time: [facility] Reported Date/Time: [id number] [facility] Collection Date/Time: us Cat Nogueira NP LAB - BLOOD DRAW Final Resul t [facility]) [address] [place] [address], from Last 3 Months or Most Recently Relevant to Health Maintenance
[2024-12-22 13:23] LABS: MANUAL DIFF FLAG NO
[2024-12-22 13:34] LABS: Hematocrit 46.6 % (42.0-52.0); Hemoglobin 15.3 g/dl (14.0-18.0); Imm Gran Abs Auto 0.01 X10*3/uL (0.00-0.03); Imm Gran Pct Auto 0.2 % (0.0-0.4); Lymphocytes Absolute Auto 2.1 X10*3/uL (1.2-4.9); Mean Corpuscular HGB Conc 32.8 g/dl (31.0-36.0); Mean Corpuscular Hemoglobin 30.2 pg (27.0-33.0); Mean Corpuscular Volume 92.1 fL (80.0-98.0); NRBC Abs Auto 0.000 X10*3/uL (0.0-0.012); NRBC Pct Auto 0.0 /100WBC (0.0-0.2); Platelet Count 181 X10*3/uL (160-400); Red Blood Count 5.06 X10*6/uL (4.60-5.80); White Blood Count 6.6 X10*3/uL (4.8-10.8)
== END 2024-12-22 11:28 | disposition home or self-care (01) ==
LOC: HO.HHCL 11:27
PROVIDERS: PCP Internal Medicine Geriatric Medicine; Visit Provider Internal Medicine Geriatric Medicine
DX: R04.0 Epistaxis (principal)
CPT/HCPCS: 36415; 85025

== ENCOUNTER 2025-01-02 17:59 | Emergency (ER) | payer MEDICAID, SELFPAY ==
[2025-01-02 18:19] VITALS: BP 140/80; PULSE 92; RESP 16; TEMP 37.8; O2SAT 98; BMI 31.6
--- NOTE | 2025-01-02 18:20 | ED_ITS ---
HPI - General Adult General Chief complaint: Upper Respiratory Symptoms Stated complaint: flu symptoms Time Seen by Provider: 01/02/25 19:05 Source: patient, RN notes reviewed and old records reviewed Mode of arrival: ambulatory Limitations: no limitations History of Present Illness ED Provider: Juany NIELSEN narrative: 29-year-old male presents for evaluation of sore throat, headache, body aches, cough since this morning. His symptoms started around 2 a.m. Denies any sick contacts. Denies any chest pain, abdominal pain, nausea, vomiting. His symptoms feel similar to when he was diagnosed with the flu last year No other complaints or concerns at this time Related Data Previous Rx's ?Medication ?Instructions ?Recorded ibuprofen 400 mg tablet 400 mg PO Q6H PRN pain #14 t abs 05/10/24 oseltamivir 75 mg capsule 75 mg PO BID 5 days #10 caps 05/10/24 Allergies Allergy/AdvReac Type Severity Reaction Status Date / Time Penicillins Allergy Unknown Verified 01/02/25 18:21 Review of Systems Constitutional: Constitutional: Reports body ache(s), Reports chills, Reports fatigue, Reports fever(s), Reports headache(s) and Reports malaise ENT: Reports headache(s) and Reports sore throat Cardiovascular: Cardiovascular: Denies chest pain and Denies dyspnea on exertion Respiratory: Respiratory: Reports cough and Denies dyspnea on exertion Gastrointestinal: Gastrointestinal: Denies abdominal pain, Denies nausea and Denies vomiting Musculoskeletal: Musculoskeletal: Denies back pain Integumentary/Breasts: Skin/Breast: Denies rash Neurologic: Reports headache(s) Psychiatric: Psychiatric: Denies anxiety Endocrine: Endocrine: Reports fatigue PMFSH Social History Social History Advance Directives: No Advance Directives Information Provided: Yes Physical Exam ED Vital Signs: Vital Signs - 24 hr 01/02/25 18:19 Temperature 100.0 F Pulse Rate 92 Respiratory Rate 16 Blood Pressure 140/80 H Pulse Oximetry 98 Oxygen Delivery Method Room Air BMI result Body Mass Index 31.6 Const General: healthy appearing, comfortable, no acute distress, alert and awake Nutritional Appearance: well nourished Orientation/consciousness: patient oriented x3 HENMT Head: Yes normocephalic and Yes atraumatic Throat: Yes posterior oropharynx normal Eyes Eyelids: Yes eyelids normal Conjunctivae: conjunctivae normal Sclerae: sclerae normal Corneas: corneas normal Pupils: Equal, round and reactive pupils present EOM: EOMs intact bilaterally Neck Neck: Yes full ROM Resp Effort & Inspection: normal respiratory effort, able to speak in complete sentences, no audible wheezes and not labored Auscultation: clear to auscultation bilaterally Cardio Rate: regular rate Rhythm: regular rhythm GI Inspection: No distended Palpation (GI): Soft to palpation, not firm, nontender, no guarding and not rigid Skin General skin exam: no rashes or lesions noted and elasticity normal Neuro General: patient oriented x3 Cranial nerves: Yes Equal, round and reactive pupils present and Yes Bilaterally intact EOM present Cognition (Neuro): normal cognition Extrem Other: Moving all extremities well without any obvious deformities Course Course Course Narrative: RME, this is a rapid medical exam performed by Jesus Harrington please refer to primary provider for complete H&P- 29-year-old male presents for evaluation of headache, sore throat, fevers and chills. He reports he feels similar to when he had the flu last year. Plan for viral swabs and strep swab. Medications Administered Discontinued Medications Generic Name Dose Route Start Last Admin Trade Name Freq PRN Reason Stop Dose Admin Acetaminophen 975 mg 01/02/25 19:12 01/02/25 19:17 Acetaminophen 325 Mg Tablet PO 01/02/25 19:13 975 mg ONCE ONE Administration Ibuprofen 600 mg 01/02/25 19:12 01/02/25 19:17 Ibuprofen 600 Mg Tablet PO 01/02/25 19:13 600 mg ONCE ONE Administration Medical Decision Making Medical Decision Making [facility] Narrative: 29-year-old male presents for evaluation of flu-like symptoms, he is quite well appearing but appears to be a viral illness. Vital signs were obtained and the patient was in fact positive for COVID 9 p.m.. He had been low grade temperature of a 100.0. He was treated with ibuprofen and Tylenol. Return precautions discussed. Differential Diagnosis Differential Diagnoses: The differential diagnosis associated with the presentation includes Influenza COVID-19 RSV Strep pharyngitis Pneumonia Lab Data Labs: Lab Results 01/02/25 Range/Units 18:39 COVID-19 (OMAYRA) Positive A (Negative) COVID-19 Clin Com See Note Influenza Type A (KARY) Negative (Negative) Influenza Type B (KARY) Negative (Negative) Influenza A & B Note See Note S. pyogenes GrpA KARY Negative (Negative) Discharge Plan Discharge Clinical Impression: COVID-19 Patient Disposition: Home, Self-Care Instructions: COVID-19 (Coronavirus Disease 2019) (ED) Additional Instructions: You tested positive for COVID-19. Use ibuprofen and Tylenol as needed for pain, fevers and headaches. Hydrate well. Follow up with your primary doctor, return for new or worsening symptoms Prescriptions: No Action oseltamivir 75 mg capsule 75 mg PO BID 5 Days Qty: 10 0RF ibuprofen 400 mg tablet 400 mg PO Q6H PRN (Reason: pain) Qty: 14 0RF Stand Alone Forms: Work/School Release Print Language: [place]
[2025-01-02 19:02] LABS: COVID-19 Test Positive (Negative); IDNOW Serial# 08D9AD1C; IDNOW Serial# 55D5AD1C; Strep A Nucleic Acid Negative (Negative)
[2025-01-02 19:03] LABS: IDNOW Serial# 6674DD1D
[2025-01-02 19:04] LABS: Influenza B2 Negative (Negative)
--- OUTSIDE RECORDS SUMMARY | 2025-01-02 19:15 | XMS_ITS | Clinical Summary ---
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 There is no laboratory evidence of HCV infection. In most cases, no further action is required. However, if recent HCV exposure is suspected, a test for HCV RNA (test code 05690) is suggested. For additional information please refer to http://education.Sqwiggle/faq/RHZ78r1 (This link is being provided for informational/ educational purposes only.) Blood Blood / Unknown 10/06/2023 1 1:06 AM EDT 10/06/2023 11:06 AM EDT Narrative [facility] ([facility]) - 10/07/2023 8:36 AM EDT [facility] Testing performed at: [facility], [facility], [address] [place] [address], [phone], Desk Assistant: Carmelita Be [facility] Collection Date/Time: [facility] Results Received Date/Time: [facility] Reported Date/Time: [id number] [facility] Collection Date/Time: Cat Nogueira NP LAB - BLOOD DRAW Final Resul t [facility] ([facility]) [address] [place] [address], * HIV 1/2 AG & AB W/RFLX (4TH GEN) (10/06/2023 11:06 AM EDT) HIV AG/AB, 4TH GEN NON-REACT MAKSIM NON-REACT MAKSIM [facility] ([facility]) Comment: HIV-1 antigen and HIV-1/HIV-2 antibodies were [...] purpose. For additional information please refer to http://education.Moe Delo.Phonitive - Touchalize/faq/RNZ254 (This link is being provided for informational/ educational purposes only.) The performance of this assay has not been clinically validated in patients less than 2 years old. Blood Blood / Unknown 10/06/2023 1 1:06 AM EDT 10/06/2023 11:06 AM EDT Narrative [facility] ([facility]) - 10/07/2023 8:36 AM EDT [facility] Testing performed at: [facility], [facility], [address] [place] [address], [phone], Desk Assistant: Carmelita Be [facility] Collection Date/Time: [facility] Results Received Date/Time: [facility] Reported Date/Time: [id number] [facility] Collection Date/Time: us Cat Nogueira NP LAB - BLOOD DRAW Final Resul t [facility] ([facility]) [address] [place] [address], from Last 3 Months or Most Recently Relevant to Health Maintenance
[2025-01-02 19:31] VITALS: BP 140/80; PULSE 92; RESP 16; TEMP 37.8; O2SAT 98
== END 2025-01-02 19:31 | disposition home or self-care (01) ==
PROVIDERS: Physician Assistant; Emergency Provider Emergency Medicine
DX: U07.1 COVID-19 (principal)
CPT/HCPCS: 87502; 87635; 87651; 99283

== ENCOUNTER 2025-02-09 22:51 | Emergency (ER) | payer MEDICAID, SELFPAY ==
--- NOTE | ~2025-02-09 | XR_ITS ---
CLINICAL HISTORY: INDEX (second finger) pain swollen 3 view left 2nd digit Comparison: None Findings: Nondisplaced comminuted 2nd phalangeal tuft fracture with regional soft tissue swelling. No significant loss of joint space or osteophytes. No erosions. No radiopaque foreign body. IMPRESSION: 2nd phalangeal tuft fracture. This document has been electronically signed by: Lobito Hnason MD on 02/10/2025 01:26:00
[2025-02-09 22:53] VITALS: BP 159/79; PULSE 88; RESP 16; TEMP 36.5; O2SAT 99; BMI 40.0
--- OUTSIDE RECORDS SUMMARY | 2025-02-10 02:37 | XMS_ITS | Clinical Summary ---
Author Organization [facility] Address [address] [place] [address] Care Team Providers Care Hr Payroll Coordinator Name Role Phone Unavailable Primary Care Provider [...] of 3 - 19+ 3-dose series) 3 Imm-HPV (1 - 3-dose SCDM series) 2020 Alcohol and Drug Screen 05/14/2024 10/06/2023 Depression Annual Screen 05/14/2024 10/06/2023 Annual Wellness (Adult): Indicated (All Coverage) 09/1210/06/2023 Hypertension Screening (#1) 10/05/2024 [id number] ( season) 2025 Imm-Influenza (#1) 2025 HIV Screening Completed 10/06/2023 [...] ANTIBODY NON-REACTI VE NON-REACT MA[facility] ([facility] [employer]) Comment: HCV antibody was non-reactive. There is no laboratory evidence of HCV infection. In most cases, no further action is required. However, if recent HCV exposure is suspected, a test for HCV RNA (test code 45175) is suggested. For additional information please refer to http://education.Mayberry Media/faq/CUS35c9 (This link is being provided for informational/ educational purposes only.) Blood Blood / Unknown 10/06/2023 1 1:06 AM EDT 10/06/2023 11:06 AM EDT Narrative [facility] ([facility] [employer]) - 10/07/2023 8:36 AM EDT [facility] Testing performed at: [facility], [facility], [address] [place] [address], [phone], Loom Winder Tender: Carmelita Be [facility] Collection Date/Time: [facility] Results Received Date/Time: [facility] Reported Date/Time: [id number] [facility] Collection Date/Time: Cat Nogueira NP LAB - BLOOD DRAW Final Resul t [facility] ([facility] [employer]) [address] [place] [address], * HIV 1/2 AG & AB W/RFLX (4TH GEN) (10/06/2023 11:06 AM EDT) HIV AG/AB, 4TH GEN NON-REACT MAKSIM NON-REACT MAKSIM [facility] ([facility] [employer]) Comment: HIV-1 antigen and HIV-1/HIV-2 antibodies were [...] purpose. For additional information please refer to http://education.BioVex.Schedulicity/faq/NRH408 (This link is being provided for informational/ educational purposes only.) The performance of this assay has not been clinically validated in patients less than 2 years old. Blood Blood / Unknown 10/06/2023 1 1:06 AM EDT 10/06/2023 11:06 AM EDT Narrative [facility] ([facility] [employer]) - 10/07/2023 8:36 AM EDT [facility] Testing performed at: [facility], [facility], [address] [place] [address], [phone], Loom Winder Tender: Carmelita Be [facility] Collection Date/Time: [facility] Results Received Date/Time: [facility] Reported Date/Time: [id number] [facility] Collection Date/Time: us Cat Nogueira NP LAB - BLOOD DRAW Final Resul t [facility] ([facility] [employer]) [address] [place] [address], from Last 3 Months or Most Recently Relevant to Health Maintenance
--- OUTSIDE RECORDS SUMMARY | 2025-02-10 02:37 | XMS_ITS | Clinical Summary ---
Author Organization [employer] Address [address] [place] [address] Care Team Providers Care Pourer Crane Ladle Name Role Phone Unavailable Primary Care Provider Unavailabl e Allergies Active Allergy Reactions Criticality Noted Date Comments Penicillins Hives 10/06/2023 Active Problems Problem Noted Date Diagnosed Date Epistaxis 12/22/2024 Left inguinal hernia 12/22/2024 Carpal tunnel syndrome 12/22/2024 Migraine without aura and wi thout status migrainosus, not intractable 12/22/2024 Encounters Date Type Department Care Team Description 12/22/2024 11:20 AM EDT Office Visit [facility] [address] [place] [address] Rony Buenrostro MD Epistaxis (Primary Dx); Migraine without aura and without status migrainosus, not intractable 12/22/2024 Results Follow-Up [facility] [address] [place] [address] Rony Buenrostro MD CBC auto differential 12/22/2024 Travel from Last 3 Months Social History Tobacco Use Types Packs/Day Years Used Date Smoking Tobacco: Never Smokeless Tobacco: Never Alcohol Use Standard Drinks/Week Comments Never 0 (1 standard drink = 0.6 oz pur e alcohol) Sex and Gender Information Value Date Recorded Sex Assigned at Male 12/22/2024 9:27 AM EDT Legal Sex Male 10:17 AM EDT Gender Identity Male 12/22/2024 9:27 AM EDT Sexual Orientation Straight 12/22/2024 9: 27 AM EDT Last Filed Vital Signs Vital Sign Reading Time Taken Comments Blood Pressure 136/88 12/22/2024 11:07 AM EDT Pulse 62 12/22/2024 11:07 AM EDT Temperature 36.4 C (97.6 F) 12/22/2024 11:07 AM EDT Respiratory Rate 18 12/22/2024 11:07 AM EDT Oxygen Saturation 99% 12/22/2024 11:07 AM EDT Inhaled Oxygen Concentration - - Weight 147 kg (324 lb 9.6 oz) 12/22/2024 11:07 A M EDT Height 190.5 cm (6' 3 ) 12/22/2024 11:07 AM EDT Body Mass Index 40.57 12/22/2024 11:07 AM EDT Plan of Treatment Health Maintenance Due Date Last Done Comments Depression Screening 1993 SDOH Screening 1993 Disability Screening 1993 Alcohol/Substance Use Screening 2005 Family Planning (PISQ) 2008 HPV Vaccines (1 - Male 3-dos e series) 2008 Hepatitis C Screening 08/30/2011 DTaP/Tdap/Td Vaccines (1 - Tdap) 2012 Hepatitis B Vaccines (1 of 3 - 19+ 3-dose series) 2012 COVID-19 Vaccine (1 - 2023-2 5 season) 2025 Influenza Vaccine (#1) 2025 Tobacco Screening 12/22/2025 12/22/2024 Zoster Vaccines (1 of 2) 08/30/2043 RSV Patients and Patients Aged 60 years or older (1 - 1-dose 75+ series) 2068 HIV Screening Completed 10/06/2023, 10/06/2023 HIB Vaccines Aged Out No longer eligi ble based on patient's age to complete this topic Hepatitis A Vaccines Aged Out No long er eligible based on patient's age to complete this topic IPV Vaccines Aged Out No longer eligi ble based on patient's age to complete this topic Meningococcal B Vaccine Aged Out No l onger eligible based on patient's age to complete this topic Meningococcal Vaccine Aged Out No steve shobha eligible based on patient's age to complete this topic Pneumococcal Vaccine: Pediatrics (0 to 5 Years) and At-Risk Patients (6 to 49) Years Aged Out No longer eligible b ased on patient's age to complete this topic RSV under 20 months Aged Out No longe r eligible based on patient's age to complete this topic Rotavirus Vaccines Aged Out No longer eligible based on patient's age to complete this topic Procedures Procedure Name Priority Date/Time Associated Diagnosis Comments CBC WITH AUTO DIFFERENTIAL Routine 12/22/2024 11:37 AM EDT Epistaxis from Last 3 Months Results * CBC auto differential (12/22/2024 11:37 AM EDT) White Blood Count 6.6 4.8 - 10.8 X10*3/uL [facility] Red Blood Count 5.06 4.60 - 5.80 X10*6/uL [facility] Hemoglobin 15.3 14.0 - 18.0 g/dl [facility] Hematocrit 46.6 42.0 - 52.0 % [facility] Mean Corpuscular Volume 92.1 80.0 - 98.0 fL [facility] Mean Corpuscular Hemoglobin 30.2 27.0 - 33.0 pg [facility] Mean Corpuscular HGB Conc 32.8 31.0 - 36.0 g/dl [facility] Red Cell Distribution Width 12.9 11.0 - 16.0 % [facility] Platelet Count 181 160 - 400 X10*3/uL [facility] Mean Platelet Volume 10.9 9.4 - 12.4 fL [facility] Neutrophils Percent Auto 58.6 45 - 73 % [facility] Imm Gran Pct Auto 0.2 0.0 - 0.4 % [facility] Lymphocytes Percent Auto 31.1 20 - 40 % [facility] Monocytes Percent Auto 8.9 2 - 11 % [facility] Eosinophils Percent Auto 0.9 0 - 4 % [facility] Basophils Percent Auto 0.3 0 - 2 % [facility] NRBC Pct Auto 0.0 0.0 - 0.2 /100WBC [facility] Neutrophils Absolute Auto 3.9 2.0 - 8.3 x10*3/uL [facility] Imm Gran Abs Auto 0.01 0.00 - 0.03 X10*3/uL [facility] Lymphocytes Absolute Auto 2.1 1.2 - 4.9 X10*3/uL [facility] Monocytes Absolute Auto 0.6 0.1 - 1.2 X10*3/uL [facility] Eosinophils Absolute Auto 0.1 0.0 - 0.4 X10*3/uL [facility] Basophils Absolute Auto 0.0 0.0 - 0.2 X10*3/uL [facility] NRBC Abs Auto 0.000 0.0 - 0.012 X10*3/uL [facility] Blood Venous blood specimen / Unknown 12/22/2024 11:37 AM EDT 12/22/2024 1:18 PM EDT us Rony Name LAB BLOOD ORDERABLES Final Resul t [facility] [address] [place] [address] [phone] from Last 3 Months Insurance [facility] C3
--- OUTSIDE RECORDS SUMMARY | 2025-02-10 02:37 | XMS_ITS | Encounter Summary ---
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
--- NOTE | 2025-02-10 03:08 | ED_ITS ---
HPI - Extremity Problem General Chief complaint: Extremity Injury, Upper Stated complaint: work injury w hammer to lt hand Time Seen by Provider: 02/10/25 02:19 Source: patient Limitations: no limitations History of Present Illness ED Provider: Mary Carmen Bates PA-C HPI Narrative: 29-year-old male presents with left index finger pain. Patient states he was at work, he forcefully struck the finger with a hammer. Now with the pain and swelling. There was no break in the skin. Related Data Previous Rx's ?Medication ?Instructions ?Recorded ibuprofen 400 mg tablet 400 mg PO Q6H PRN pain #14 t abs 05/10/24 oseltamivir 75 mg capsule 75 mg PO BID 5 days #10 caps 05/10/24 Allergies Allergy/AdvReac Type Severity Reaction Status Date / Time Penicillins Allergy Unknown Verified 02/09/25 22:58 Review of Systems Review of Systems: Yes all other systems are reviewed and are negative Constitutional: Constitutional: Denies fatigue and Denies fever(s) Musculoskeletal: Musculoskeletal: Reports arthralgias and Reports joint swelling Endocrine: Endocrine: Denies fatigue PMFSH Past Medical History Attestation statement: The following information was validated with the patient. Social History Social History Advance Directives: No Advance Directives Information Provided: Yes Do you have a plan to hurt others: No Plan Physical Exam Vital Signs: Vital Signs: Last Vital Signs Temp 97.7 F 02/09/25 22:53 Pulse 88 02/09/25 22:53 Resp 16 02/09/25 22:53 BP 159/79 H 02/09/25 22:53 Pulse Ox 99 02/09/25 22:53 O2 Del Method Room Air 02/09/25 22:53 BMI result Body Mass Index 40.0 Const: Other: Alert well-appearing Orientation/consciousness: patient oriented x3 Resp: Effort & Inspection: normal respiratory effort Cardio: Other: Normal peripheral perfusion Skin: Other: Warm dry no rash Neuro: General: patient oriented x3, gait normal, no focal motor deficits and CN's II-XI intact bilaterally Extrem: Other: Able to flex and extend at MCP PIP DI P of each joint of the the left 2nd finger, swelling and ecchymosis noted at the tip Psych: Other: Cooperative Medical Decision Making Medical Decision Making MDM Narrative: 29-year-old male presents with left index finger pain. Patient states he was at work, he forcefully struck the finger with a hammer. Now with the pain and swelling. There was no break in the skin. No chronic issues History: Per patient I have considered the following differential diagnoses: Fracture, dislocation, contusion, sprain, crush injury Plan: Patient had an x-ray that was ordered from triage, there was a tuft fracture, this is not an open fracture, we will place in a finger splint and he can follow up with the ortho I have independently reviewed the following tests: X-ray left hand:Findings: Nondisplaced comminuted 2nd phalangeal tuft fracture with regional soft tissue swelling. No significant loss of joint space or osteophytes. No erosions. No radiopaque foreign body. IMPRESSION: 2nd phalangeal tuft fracture. Differential Diagnosis Differential Diagnoses: The differential diagnosis associated with the presentation includes See home care instruction Admission/Observation Consideration of admission/observation: Escalation of care including admission/observation considered Not applicable Radiology Impression Discussion of test interpretation with radiology: I have reviewed the radiologist's reading. Procedures Orthopedic Fracture Reduction Fracture #1: Time Out Performed: No Side: left Fracture Reduction Location: finger Analgesia: none Post-reduction neuro exam: intact Post-reduction vascular exam: intact Splint Applied: Yes Additional Comments: No reduction require just a splint Discharge Plan Discharge Clinical Impression: Closed fracture of tuft of distal phalanx of left index finger Patient Disposition: Home, Self-Care Instructions: Finger Fracture (ED) Additional Instructions: You sustained a fracture of the left 2nd finger, it is located in the bone at the tip of the finger. Keep the splint in place, you can remove it when you shower. I am providing you with a contact for our orthopedic service, you can call to schedule an appointment. Prescriptions: No Action oseltamivir 75 mg capsule 75 mg PO BID 5 Days Qty: 10 0RF ibuprofen 400 mg tablet 400 mg PO Q6H PRN (Reason: pain) Qty: 14 0RF Referrals: Latha Smith MD [Physician, Hand Surgery] Referral Note: left 2nd finger tuft fx Stand Alone Forms: Work/School Release Print Language: Togolese
[2025-02-10 03:58] VITALS: BP 159/79; PULSE 88; RESP 16; TEMP 36.5; O2SAT 99
== END 2025-02-10 03:59 | disposition home or self-care (01) ==
PROVIDERS: Emergency Provider Emergency Medicine
DX: S62.631A Displaced fracture of distal phalanx of left index finger, initial encounter for closed fracture (principal); X58.XXXA Exposure to other specified factors, initial encounter; Y93.9 Activity, unspecified; Y92.9 Unspecified place or not applicable; Y99.0 Civilian activity done for income or pay
CPT/HCPCS: 73140; 99282; 99283

== ENCOUNTER → 2025-02-10 | Outpatient (BNV) | payer MEDICAID, SELFPAY | PROVIDERS: Visit Provider Radiology Diagnostic Radiology | DX: S62.661A Nondisplaced fracture of distal phalanx of left index finger, initial encounter for closed fracture (principal) | CPT/HCPCS: 73140 ==

== ENCOUNTER 2025-02-17 10:21 | Outpatient (AMB) | payer MEDICAID, SELFPAY ==
[2025-02-17 10:42] VITALS: BMI 28.7
--- NOTE | 2025-02-17 10:42 | A.OFFVIS_ITS ---
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 DOI: 02/09/25 Patient states while at work, he forcefully struck the finger with a hammer. Seen at [facility] ED where xrays were taken and a fracture was confirmed. Patient was splinted and referred to hand specialist. Today states he continues to have pain, first couple of days he had constant numbness, now that has improved and is now having a sharp pain at tip of finger. He is limited ROM and feels increase pain when bending. He also contiues to have numbness and tingling in both hands. Patient was last seen with [facility] in 2023 for CTS in billateral hands and was suppose to have surgery however states due to a work conflict he was not able to have surgery. Allergies Penicillins Allergy (Verified 02/17/25 10:54) Unknown HPI HPI ED f/u left index finger fx: Details: Carlos is a 29 year old right hand dominant man who presents for a left index finger fracture. He struck his finger with a hammer while at work, DOI: 02/10/25. he was splinted in the ED. 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 He complains of pain in his index finger, along with some hypersensitivity. He also has numbness to the radial half of his index finger since his injury. He has limited ROM, which also worsens his pain. He has known bilateral carpal tunnel syndrome. He had to cancel his previously scheduled surgery last year due to a work conflict. 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 Review of Systems Const All systems reviewed & are unremarkable except as noted in HPI and below Physical Exam Vital Signs: BMI result Body Mass Index 28.7 Const General: cooperative, healthy appearing and no acute distress Orientation/consciousness: patient oriented x3 HEENT Head: Yes normocephalic and Yes atraumatic Eyes EOM: EOMs intact bilaterally Resp Effort & Inspection: normal respiratory effort and able to speak in complete sentences Cardio Jugular venous distension: no JVD Skin General skin exam: turgor normal Rashes: no rashes Neuro General: patient oriented x3 Extrem Other: Evaluation of Left Upper Extremity: The patient is alert, oriented, and in no acute distress Neuro: Dense numbness in the index finger radial digital nerve distribution. Normal sensation tot he index finger ulnar digital nerve distribution Normal sensation to all other digits Some hypersensitivity over the index finger Vascular: Cap refill brisk ROM: He has some stiffness MCP & PIP joints of the index finger With encouragement he could flex the MCP & PIP joints to ~90 degrees each. Did not test DIP joint ROM Skin: No lacerations or abrasions or evidence of open injury General: Resolving Ecchymosis. No Erythema or evidence of infection. No subungual hematoma Very tender over the fracture site Swelling of the distal index finger Radiographs: 3 views of the left hand were taken and viewed by me today in clinic. They show an index finger distal phalanx tuft fracture, comminuted minimally displaced Nerve Conduction Study: IMPRESSION: 1. This is an abnormal study. 2. There is electrodiagnostic evidence for bilateral moderate-severe median neuropathy at the wrist, consistent with carpal tunnel syndrome. 3. There is no electrodiagnostic evidence for ulnar neuropathy, brachial plexop athy, or cervical radiculopathy. Thank you for your kind referral. Aziza Youngblood MD, JENNIFER 02/28/24 Psych Appearance: grossly normal Affect: normal affect Attitude: cooperative Office Procedures AMB Fracture Care Details: Fracture care [id number] Fracture Billing Code: Fracture Billing Code Assessment & Plan Assessment & Plan (1) Fracture of distal phalanx of left index finger: Code(s): S62.631A - Displaced fracture of distal phalanx of left index finger, initial e ncounter for closed fracture Category: Medical (2) Bilateral carpal tunnel syndrome: Code(s): G56.03 - Carpal tunnel syndrome, bilateral upper limbs Category: Medical Plan Assessment & Plan: 1. Left index finger distal phalanx fracture, DOI: 02/09/25 This is a work-related injury I educated him about this condition I discussed operative and non-operative treatment options We will manage this conservatively, and he is in agreement He was fitted for a finger spica splint, to be worn for the next 3 weeks I discussed activity modifications, he is to lift nothing heavier than a cellphone for the next 4 weeks. 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 he was given a note to remain out of work for the next 3 weeks. He may contact the clinic for a light duty work note if his job has light duty for him, 2lb weight limit with his LUE until his next appointment. He will follow up in 3 weeks with LIDIA Ragland, with X-rays, 3V L IF, OOP. Discuss RTW status 2. Left carpal tunnel syndrome, moderate-severe Of note, new Dense numbness radial aspect of the index finger following his fracture 3. Right carpal tunnel syndrome, moderate-severe We can discuss at a later date when his fracture as recovered. Scribed for Latha Smith MD by Rohan Kitchen, medical voucher clerk, on 02/17/25 at 10:55 AM, EST. Coding Level of Care Code Est Pt Level 3 (02932) Diagnoses Fracture of distal phalanx of left index finger S62.631A Bilateral carpal tunnel syndrome G56.03 CPT Codes Fracture Care - Fracture Billing Code: Fracture Billing Code ([id number])
--- OUTSIDE RECORDS SUMMARY | 2025-02-17 12:23 | XMS_ITS | Clinical Summary ---
Author Organization [employer] Address [address] [facility] 7t [place] [address] Care Team Providers Care Director Employment Name Role Phone Unavailable Primary Care Provider Unavailabl e Allergies Active Allergy Reactions Criticality Noted Date Comments Penicillins Hives 10/06/2023 Active Problems Problem Noted Date Diagnosed Date Epistaxis 12/22/2024 Left inguinal hernia 12/22/2024 Carpal tunnel syndrome 12/22/2024 Migraine without aura and wi thout status migrainosus, not intractable 12/22/2024 Encounters Date Type Department Care Team Description 12/22/2024 11:20 AM EDT Office Visit [facility] [address] [place] [address] Rony Buenrostro MD Epistaxis (Primary Dx); Migraine without aura and without status migrainosus, not intractable 12/22/2024 Results Follow-Up [facility] [address] [place] [address] Rony Buenrostro MD CBC auto differential 12/22/2024 [...] Blood Count 6.6 4.8 - 10.8 X10*3/uL [facility] Red Blood Count 5.06 4.60 - 5.80 X10*6/uL [facility] Hemoglobin 15.3 14.0 - 18.0 g/dl [facility] Hematocrit 46.6 42.0 - 52.0 % [facility] Mean Corpuscular Volume 92.1 80.0 - 98.0 fL [facility] Mean Corpuscular Hemoglobin 30.2 27.0 - 33.0 pg [facility] Mean Corpuscular HGB Conc 32.8 31.0 - 36.0 g/dl [facility] Red Cell Distribution Width 12.9 11.0 - 16.0 % [facility] Platelet Count 181 160 - 400 X10*3/uL [facility] Mean Platelet Volume 10.9 9.4 - 12.4 fL [facility] Neutrophils Percent Auto 58.6 45 - 73 % [facility] Imm Gran Pct Auto 0.2 0.0 - 0.4 % [facility] Lymphocytes Percent Auto 31.1 20 - 40 % [facility] Monocytes Percent Auto 8.9 2 - 11 % [facility] Eosinophils Percent Auto 0.9 0 - 4 % [facility] Basophils Percent Auto 0.3 0 - 2 % [facility] NRBC Pct Auto 0.0 0.0 - 0.2 /100WBC [facility] Neutrophils Absolute Auto 3.9 2.0 - 8.3 x10*3/uL [facility] Imm Gran Abs Auto 0.01 0.00 - 0.03 X10*3/uL [facility] Lymphocytes Absolute Auto 2.1 1.2 - 4.9 X10*3/uL [facility] Monocytes Absolute Auto 0.6 0.1 - 1.2 X10*3/uL [facility] Eosinophils Absolute Auto 0.1 0.0 - 0.4 X10*3/uL [facility] Basophils Absolute Auto 0.0 0.0 - 0.2 X10*3/uL [facility] NRBC Abs Auto 0.000 0.0 - 0.012 X10*3/uL [facility] Blood Venous blood specimen / Unknown 12/22/2024 11:37 AM EDT 12/22/2024 1:18 PM EDT us Rony Name LAB BLOOD ORDERABLES Final Resul t [facility] [address] [place] [address] [phone] from Last 3 Months Insurance [facility] C3
--- OUTSIDE RECORDS SUMMARY | 2025-02-17 12:23 | XMS_ITS | Encounter Summary ---
Author Organization [employer] Address [address] [facility] 7[address] [place] [address] Care Team Providers Care Furnace Door Tender Name Role Phone Unavailable Primary Care Provider Unavailabl e Encounter Details Date Type Department Care Team (Latest Contact Info) Description 12/22/2024 Results Follow-Up [facility] [address] [place] [address] Name, MD Rony [address] [place] [address] CBC auto differential Social History Tobacco Use [...]
--- OUTSIDE RECORDS SUMMARY | 2025-02-17 12:23 | XMS_ITS | Clinical Summary ---
Author Organization [facility] Address [address] [place] [address] Care Team Providers Care Network Operations Project Manager Name Role Phone Unavailable Primary Care Provider [...] (All Coverage) 09/1210/06/2023 Hypertension Screening (#1) 10/05/2024 [id number] ( season) 2025 Imm-Influenza (#1) 2025 HIV [...] ANTIBODY NON-REACTI VE NON-REACT [facility] ([facility]) Comment: HCV antibody was non-reactive. There is no laboratory evidence of HCV infection. In most cases, no further action is required. However, if recent HCV exposure is suspected, a test for HCV RNA (test code 82186) is suggested. For additional information please refer to http://education.Security Scorecard/faq/XDJ49c9 (This link is being provided for informational/ educational purposes only.) Blood Blood / Unknown 10/06/2023 1 1:06 AM EDT 10/06/2023 11:06 AM EDT Narrative [facility]) - 10/07/2023 8:36 AM EDT [facility] Testing performed at: [facility], [facility], [address] [place] [address], [phone], Hand Wood Sander: Carmelita Be [facility] Collection Date/Time: [facility] Results Received Date/Time: [facility] Reported Date/Time: [id number] [facility] Collection Date/Time: Cat Nogueira NP LAB - BLOOD DRAW Final Resul t [facility]) [address] [place] [address], * HIV 1/2 AG & AB W/RFLX (4TH GEN) (10/06/2023 11:06 AM EDT) HIV AG/AB, 4TH GEN NON-REACT MAKSIM NON-REACT [facility] ([facility]) Comment: HIV-1 antigen and HIV-1/HIV-2 antibodies were [...] purpose. For additional information please refer to http://education.[employer].Cigital/faq/NNW316 (This link is being provided for informational/ educational purposes only.) The performance of this assay has not been clinically validated in patients less than 2 years old. Blood Blood / Unknown 10/06/2023 1 1:06 AM EDT 10/06/2023 11:06 AM EDT Narrative [facility] ([facility]) - 10/07/2023 8:36 AM EDT [facility] Testing performed at: [facility], [facility], [address] [place] [address], [phone], Hand Wood Sander: Carmelita Be [facility] Collection Date/Time: [facility] Results Received Date/Time: [facility] Reported Date/Time: [id number] [facility] Collection Date/Time: us Cat Nogueira NP LAB - BLOOD DRAW Final Resul t [facility]) [address] [place] [address], from Last 3 Months or Most Recently Relevant to Health Maintenance
== END 2025-02-17 11:06 | disposition home or self-care (01) ==
LOC: HO.HOS 10:22
PROVIDERS: Visit Provider Orthopaedic Surgery
DX: S62.631A Displaced fracture of distal phalanx of left index finger, initial encounter for closed fracture (principal); G56.03 Carpal tunnel syndrome, bilateral upper limbs
CPT/HCPCS: 26750; 99213

== ENCOUNTER → 2025-02-17 10:21 | Outpatient (BNVA) | payer MEDICAID, SELFPAY | PROVIDERS: Visit Provider Orthopaedic Surgery | DX: S62.631D Displaced fracture of distal phalanx of left index finger, subsequent encounter for fracture with routine healing (principal); G56.03 Carpal tunnel syndrome, bilateral upper limbs | CPT/HCPCS: 26750; 99212 ==

== ENCOUNTER 2025-03-10 08:17 | Outpatient (REF) | payer MEDICAID, SELFPAY ==
--- NOTE | ~2025-03-10 | XR_ITS ---
EXAMINATION: XR HAND, LEFT CLINICAL INFORMATION: M79.642 - Pain in left hand COMPARISON: February 10, 2025. TECHNIQUE: PA, lateral, and oblique views of the left hand. FINDINGS: There is a metallic ring overlapping and color in the proximal phalanx of the fourth digit. There is a large metallic wristwatch overlapping the wrist/distal radius and ulna. There is a comminuted fracture without periosteal bone reaction or callus formation at the tip of the distal phalanx second digit. No subcutaneous emphysema. No metallic or radiopaque foreign body within the second digit. No gross lytic or blastic lesions.. XR/XR hand LT min 3V IMPRESSION: Nonunion fracture, distal phalanx second digit. Electronically signed by: Jamin Mckenzie MD 03/10/2025 09:46 AM EDT
--- OUTSIDE RECORDS SUMMARY | 2025-03-10 08:50 | XMS_ITS | Clinical Summary ---
Author Organization [employer] Address [address] [facility] 7t [place] [address] Care Team Providers Care Aquaculture Program Director Name Role Phone Unavailable Primary Care Provider Unavailabl e Allergies Active Allergy Reactions Criticality Noted Date Comments Penicillins Hives 10/06/2023 Active Problems Problem Noted Date Diagnosed Date Epistaxis 12/22/2024 Left inguinal hernia 12/22/2024 Carpal tunnel syndrome 12/22/2024 Migraine without aura and wi thout status migrainosus, not intractable 12/22/2024 Encounters Date Type Department Care Team Description 12/22/2024 11:20 AM EDT Office Visit [facility] [address] [place] [address] Rony Buenrostro MD Epistaxis (Primary Dx); Migraine without aura and without status migrainosus, not intractable 12/22/2024 Results Follow-Up [facility] [address] [place] [address] Rony Buenrostro MD CBC auto differential 12/22/2024 [...] - 19+ 3-dose series) 2012 COVID-19 Vaccine ( - 2023-2 5 season) 2025 Influenza Vaccine (#1) 2025 Tobacco Screening 12/22/2025 12/22/2024 Zoster Vaccines (1 of 2) 08/30/2043 RSV Patients and Pa tients Aged 60 years or older (1 - 1-dose 75+ series) 2068 HIV Screening Completed 10/06/2023 HIB Vaccines Aged Out No longer [...] age to complete this topic Pneumococcal Vaccine: Pediat rics (0 to 5 Years) and At-Risk Patients (6 to 49) Years Aged Out No longer eligi ble based [...] Blood Count 6.6 4.8 - 10.8 X10*3/uL [facility] Red Blood Count 5.06 4.60 - 5.80 X10*6/uL [facility] Hemoglobin 15.3 14.0 - 18.0 g/dl [facility] Hematocrit 46.6 42.0 - 52.0 % [facility] Mean Corpuscular Volume 92.1 80.0 - 98.0 fL [facility] Mean Corpuscular Hemoglobin 30.2 27.0 - 33.0 pg [facility] Mean Corpuscular HGB Conc 32.8 31.0 - 36.0 g/dl [facility] Red Cell Distribution Width 12.9 11.0 - 16.0 % [facility] Platelet Count 181 160 - 400 X10*3/uL [facility] Mean Platelet Volume 10.9 9.4 - 12.4 fL [facility] Neutrophils Percent Auto 58.6 45 - 73 % [facility] Imm Gran Pct Auto 0.2 0.0 - 0.4 % [facility] Lymphocytes Percent Auto 31.1 20 - 40 % [facility] Monocytes Percent Auto 8.9 2 - 11 % [facility] Eosinophils Percent Auto 0.9 0 - 4 % [facility] Basophils Percent Auto 0.3 0 - 2 % [facility] NRBC Pct Auto 0.0 0.0 - 0.2 /100WBC [facility] Neutrophils Absolute Auto 3.9 2.0 - 8.3 x10*3/uL [facility] Imm Gran Abs Auto 0.01 0.00 - 0.03 X10*3/uL [facility] Lymphocytes Absolute Auto 2.1 1.2 - 4.9 X10*3/uL [facility] Monocytes Absolute Auto 0.6 0.1 - 1.2 X10*3/uL [facility] Eosinophils Absolute Auto 0.1 0.0 - 0.4 X10*3/uL [facility] Basophils Absolute Auto 0.0 0.0 - 0.2 X10*3/uL [facility] NRBC Abs Auto 0.000 0.0 - 0.012 X10*3/uL [facility] Blood Venous blood specimen / Unknown 12/22/2024 11:37 AM EDT 12/22/2024 1:18 PM EDT us Rony Name LAB BLOOD ORDERABLES Final Resul t [facility] [address] [place] [address] [phone] from Last 3 Months Insurance [facility] C3
== END 2025-03-10 08:18 | disposition home or self-care (01) ==
LOC: HO.HOSX 08:17
DX: S62.631D Displaced fracture of distal phalanx of left index finger, subsequent encounter for fracture with routine healing (principal); G56.03 Carpal tunnel syndrome, bilateral upper limbs; X58.XXXD Exposure to other specified factors, subsequent encounter
CPT/HCPCS: 73130; 99212

== ENCOUNTER 2025-03-10 09:29 | Outpatient (AMB) | payer MEDICAID, SELFPAY ==
[2025-03-10 09:45] VITALS: BMI 28.7
--- NOTE | 2025-03-10 09:45 | A.OFFVIS_ITS ---
Vital Signs 03/10/25 09:45 Height 6 ft 3 in Weight 230 lb BMI 28.7 Intake Visit Reasons: OV-left index finger fx-w/xrays-DOI 02/09/25 Intake Note: Carlos is a 29 year old right hand dominant male who presents today for follow up status post Left Index Finger Distal Phalanx Fracture, DOI: 02/09/25. He was last evaluated by Dr. Smith on 02/17/25. At that time he was placed in a finger splint to be worn for 3 weeks. Patient was instructed to not lift anything greater than 2 lbs for 4 weeks or high impact activities for 6-8 weeks. He was advised to perform gentle MCP & PIP ROM at home. A work note was given to remain out of work for 3 weeks. Today, patient reports he is mangle tender cloth to touch. He is concerned for involuntary movements that started about 2 weeks ago. Patient also reports he is stillout of work. Allergies Penicillins Allergy (Verified 03/10/25 09:45) Unknown HPI HPI OV-left index finger fx-w/xrays-DOI 02/09/25: Details: Carlos is a 29 year old right hand dominant male who presents today for follow up status post Left Index Finger Distal Phalanx Fracture, DOI: 02/09/25. He was last evaluated by Dr. Smith on 02/17/25. At that time he was placed in a finger splint to be worn for 3 weeks. Patient was instructed to not lift anything greater than 2 lbs for 4 weeks or high impact activities for 6-8 weeks. He was advised to perform gentle MCP & PIP ROM at home. A work note was given to remain out of work for 3 weeks. Today, patient reports he is mangle tender cloth to touch. He is concerned for involuntary movements that started about 2 weeks ago. Patient also reports he is stillout of work. 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 Review of Systems Const All systems reviewed & are unremarkable except as noted in HPI and below Physical Exam Vital Signs: BMI result Body Mass Index 28.7 Const General: cooperative, healthy appearing and no acute distress Orientation/consciousness: patient oriented x3 HEENT Head: Yes normocephalic and Yes atraumatic Eyes EOM: EOMs intact bilaterally Resp Effort & Inspection: normal respiratory effort and able to speak in complete sentences Cardio Jugular venous distension: no JVD Skin General skin exam: turgor normal Rashes: no rashes Neuro General: patient oriented x3 Extrem Other: Evaluation of Left Upper Extremity: The patient is alert, oriented, and in no acute distress Neuro: Improved sensation in the index finger radial digital nerve distribution. Normal sensation tot he index finger ulnar digital nerve distribution Normal sensation to all other digits Some hypersensitivity over the index finger Vascular: Cap refill brisk ROM: He has minimal stiffness MCP & PIP joints of the index finger With encouragement he could flex the MCP & PIP joints to ~90 degrees each. Patient can make a full closed fist including the DIP joint Skin: No lacerations or abrasions or evidence of open injury General: Resolving Ecchymosis. No Erythema or evidence of infection. No subungual hematoma Non tender over the fracture site No further Swelling of the distal index finger Psych Appearance: grossly normal Affect: normal affect Attitude: cooperative Results Reviewed Results Reviewed: X-rays obtained in the office today and independently reviewed by me, Obie Kapoor PA-C, demonstrate nondisplaced tuft fracture of the left index finger with evidence of interval bony healing. Assessment & Plan Assessment & Plan (1) Fracture of distal phalanx of left index finger: Code(s): S62.631A - Displaced fracture of distal phalanx of left index finger, initial encounter for closed fracture Category: Medical (2) Bilateral carpal tunnel syndrome: Code(s): G56.03 - Carpal tunnel syndrome, bilateral upper limbs Category: Medical Plan Assessment & Plan: 1. Left index finger distal phalanx fracture, DOI: 02/09/25 This is a work-related injury I educated him about this condition I discussed operative and non-operative treatment options We will manage this conservatively, and he is in agreement He was fitted for a finger spica splint at previous visit, should wear this splint with daytime activities until follow-up I discussed activity modifications, he is to lift nothing heavier than a cellphone for the next 4 weeks. They should also avoid any heavy impact activities, falls, or sports activities for the next 6-8 weeks He will perform gentle range of motion at home, including the D IP joint He should gently massage about the finger to reduce the risk of hypersensitivity Return to work light duty with a 2 lb weight limit in the left hand until follow-up He will follow up in 4 weeks, sooner with any acute concerns Orders: Orders XR hand LT min 3V Today M79.642 - Pain in left hand Coding Level of Care Code Global (05909) Diagnoses Fracture of distal phalanx of left index finger S62.631A Bilateral carpal tunnel syndrome G56.03
== END 2025-03-10 10:23 | disposition home or self-care (01) ==
LOC: HO.HOS 09:30
DX: S62.631A Displaced fracture of distal phalanx of left index finger, initial encounter for closed fracture (principal); G56.03 Carpal tunnel syndrome, bilateral upper limbs
CPT/HCPCS: 99024

== ENCOUNTER → 2025-03-10 09:31 | Outpatient (BNV) | payer MEDICAID, SELFPAY | PROVIDERS: Visit Provider Radiology Diagnostic Radiology | DX: S62.631K Displaced fracture of distal phalanx of left index finger, subsequent encounter for fracture with nonunion (principal) | CPT/HCPCS: 73130 ==

== ENCOUNTER 2025-04-06 08:44 | Outpatient (REF) | payer MEDICAID, SELFPAY ==
--- NOTE | ~2025-04-06 | XR_ITS ---
EXAMINATION: XR HAND 3 OR MORE VIEWS LEFT HISTORY: M79.642 - Pain in left hand COMPARISON: Comparison is made with the prior examination dated 03/10/2025. FINDINGS: Three views of the left hand are submitted. Osseous mineralization is normal. Again seen is a comminuted fracture of the tuft of the distal phalanx of the index finger. The fracture lines remain visible. The joint spaces are preserved. The soft tissues are unremarkable. XR/XR hand LT min 3V IMPRESSION: Comminuted fracture of the tuft of the distal phalanx of the index finger without significant change. Electronically signed by: Beto Alberto MD 04/06/2025 02:43 PM EST
--- OUTSIDE RECORDS SUMMARY | 2025-04-07 09:06 | XMS_ITS | Clinical Summary ---
Author Organization [employer] Address [address] [facility] 7t [place] [address] Care Team Providers Care Bisque Finisher Name Role Phone Unavailable Primary Care Provider [...] patient's age to complete this topic Insurance [facility] C3
== END 2025-04-06 08:45 | disposition home or self-care (01) ==
LOC: HO.HOSX 08:44
DX: S62.631D Displaced fracture of distal phalanx of left index finger, subsequent encounter for fracture with routine healing (principal); G56.03 Carpal tunnel syndrome, bilateral upper limbs; X58.XXXD Exposure to other specified factors, subsequent encounter
CPT/HCPCS: 73130; 99212

== ENCOUNTER 2025-04-06 14:12 | Outpatient (AMB) | payer MEDICAID, SELFPAY ==
--- NOTE | 2025-04-06 14:29 | A.OFFVIS_ITS ---
Vital Signs 04/06/25 14:34 Height 6 ft 3 in Weight 230 lb BMI 28.7 Intake Visit Reasons: OV-left index finger fx, WC DOI 02/09/25-w/xray Intake Note: Carlos is a 29 year old right hand dominant male who presents today for follow up status post Left Index Finger Distal Phalanx Fracture, DOI: 02/09/25. At his last visit he was advised to continue using his finger spica brace, to lift nothing heavier than a cellphone for 4 weeks, avoid any heavy impact activities, falls, or sports activities for 6-8 weeks, perform gentle ROM at home, including the DIP joint, and to gently massage around the finger to reduce the risk of hypersensitivity. He was released to return to work light duty with a 2 lb weight limit until follow-up. Today, patient reports he is doing well. He reports an occasional shooting sensation at the tip of his left index finger, whenever he bumps it. 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 Allergies Penicillins Allergy (Verified 04/06/25 14:33) Unknown HPI HPI OV-left index finger fx, WC DOI 02/09/25-w/xray: Details: Carlos is a 29 year old right hand dominant male who presents today for follow up status post Left Index Finger Distal Phalanx Fracture, DOI: 02/09/25. At his last visit he was advised to continue using his finger spica brace, to lift nothing heavier than a cellphone for 4 weeks, avoid any heavy impact activities, falls, or sports activities for 6-8 weeks, perform gentle ROM at home, including the DIP joint, and to gently massage around the finger to reduce the risk of hypersensitivity. He was released to return to work light duty with a 2 lb weight limit until follow-up. Today, patient reports he is doing well. He reports an occasional shooting sensation at the tip of his left index finger, whenever he bumps it. 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 Review of Systems Const All systems reviewed & are unremarkable except as noted in HPI and below Physical Exam Vital Signs: BMI result Body Mass Index 28.7 Const General: cooperative, healthy appearing and no acute distress Orientation/consciousness: patient oriented x3 HEENT Head: Yes normocephalic and Yes atraumatic Eyes EOM: EOMs intact bilaterally Resp Effort & Inspection: normal respiratory effort and able to speak in complete sentences Cardio Jugular venous distension: no JVD Skin General skin exam: turgor normal Rashes: no rashes Neuro General: patient oriented x3 Extrem Other: Evaluation of Left Upper Extremity: The patient is alert, oriented, and in no acute distress Neuro: Improved sensation in the index finger radial digital nerve distribution. Normal sensation tot he index finger ulnar digital nerve distribution Normal sensation to all other digits Some hypersensitivity over the index finger Vascular: Cap refill brisk ROM: He has no stiffness MCP & PIP joints of the index finger With encouragement he could flex the MCP & PIP joints to ~90 degrees each. Patient can make a full closed fist including the DIP joint Skin: No lacerations or abrasions or evidence of open injury General: Resolving Ecchymosis. No Erythema or evidence of infection. No subungual hematoma Non tender over the fracture site No further Swelling of the distal index finger Psych Appearance: grossly normal Affect: normal affect Attitude: cooperative Results Reviewed Results Reviewed: X-rays obtained in the office today and independently reviewed by me, Obie Kapoor PA-C, demonstrate nondisplaced tuft fracture of the left index finger with evidence of interval bony healing. Assessment & Plan Assessment & Plan (1) Fracture of distal phalanx of left index finger: Code(s): S62.631A - Displaced fracture of distal phalanx of left index finger, initial encounter for closed fracture Category: Medical (2) Bilateral carpal tunnel syndrome: Code(s): G56.03 - Carpal tunnel syndrome, bilateral upper limbs Category: Medical Plan Assessment & Plan: 1. Left index finger distal phalanx fracture, DOI: 02/09/25 This is a work-related injury I educated him about this condition I discussed operative and non-operative treatment options We will manage this conservatively, and he is in agreement No further splinting indicated I discussed activity modifications, 5 lb weight limit for the next 4 weeks He will perform gentle range of motion at home, including the D IP joint He should gently massage about the finger to reduce the risk of hypersensitivity As the patient does not need to lift anything at work, he is cleared to return to work full duty He will follow up in 4 weeks, sooner with any acute concerns Orders: Orders XR hand LT min 3V Today M79.642 - Pain in left hand Coding Level of Care Code Global (58129) Diagnoses Fracture of distal phalanx of left index finger S62.631A Bilateral carpal tunnel syndrome G56.03
[2025-04-06 14:34] VITALS: BMI 28.7
--- OUTSIDE RECORDS SUMMARY | 2025-04-06 19:08 | XMS_ITS | Clinical Summary ---
Author Organization [employer] Address [address] [facility] [address] [place] [address] Care Team Providers Care Mediation Commissioner Name Role Phone Unavailable Primary Care Provider Unavailabl e Allergies Active Allergy Reactions Criticality Noted Date Comments Penicillins Hives 10/06/2023 Active Problems Problem Noted Date Diagnosed Date Epistaxis 12/22/2024 Left inguinal hernia 12/22/2024 Carpal tunnel syndrome 12/22/2024 Migraine without aura and wi thout status migrainosus, not intractable 12/22/2024 Social History Tobacco Use Types Packs/Day Years [...] 3-dose series) 2012 COVID-19 Vaccine (1 - 2024-2 6 season) 2025 Influenza Vaccine (#1) 2025 Tobacco [...] on patient's age to complete this topic Insurance [facility] C3
== END 2025-04-06 14:39 | disposition home or self-care (01) ==
LOC: HO.HOS 14:12
DX: S62.631A Displaced fracture of distal phalanx of left index finger, initial encounter for closed fracture (principal); G56.03 Carpal tunnel syndrome, bilateral upper limbs
CPT/HCPCS: 99024

== ENCOUNTER → 2025-04-06 14:13 | Outpatient (BNV) | payer MEDICAID, SELFPAY | PROVIDERS: Visit Provider Radiology Diagnostic Radiology | DX: M79.642 Pain in left hand (principal) | CPT/HCPCS: 73130 ==